=== PATIENT | female | born 1965 | race Caucasian/White ===

== ENCOUNTER 2020-07-21 10:53 | Outpatient (REF) | payer BC, SELFPAY ==
[2020-07-23 21:37] LABS: HPV mRNA E6/E7 Not Detected (Not Detected)
== END 2020-07-21 10:54 | disposition home or self-care (01) ==
LOC: HO.LAB 10:53
PROVIDERS: PCP Internal Medicine; Referring Provider Internal Medicine; Visit Provider Advanced Practice Midwife
DX: Z01.419 Encounter for gynecological examination (general) (routine) without abnormal findings (principal); N95.1 Menopausal and female climacteric states; Z79.899 Other long term (current) drug therapy
CPT/HCPCS: 87624; 87625; 88142

== ENCOUNTER 2020-08-04 14:09 | Outpatient (REF) | payer BC, SELFPAY ==
[2020-08-05 18:42] LABS: Follicle Stimulating Hormone 38.8 mIU/mL
== END 2020-08-04 14:10 | disposition home or self-care (01) ==
LOC: HO.LAB 14:09
PROVIDERS: PCP Internal Medicine; Visit Provider Advanced Practice Midwife
DX: R23.2 Flushing (principal)
CPT/HCPCS: 83001

== ENCOUNTER → 2020-08-08 09:48 | Outpatient (BNVA) | payer BC, SELFPAY | PROVIDERS: Visit Provider Advanced Practice Midwife | DX: Z76.89 Persons encountering health services in other specified circumstances (principal) ==

== ENCOUNTER 2020-08-13 08:00 | Outpatient (REF) | payer BC, SELFPAY ==
[2020-08-14 09:17] LABS: Follicle Stimulating Hormone 15.4 mIU/mL
== END 2020-08-13 08:01 | disposition home or self-care (01) ==
LOC: HO.LAB 08:00
PROVIDERS: PCP Internal Medicine; Visit Provider Advanced Practice Midwife
DX: R23.2 Flushing (principal)
CPT/HCPCS: 83001

== ENCOUNTER → 2020-08-15 10:04 | Outpatient (BNVA) | payer BC, SELFPAY | PROVIDERS: Visit Provider Advanced Practice Midwife | DX: Z76.89 Persons encountering health services in other specified circumstances (principal) ==

== ENCOUNTER 2020-09-16 07:10 | Outpatient (REF) | payer BC, SELFPAY ==
[2020-09-16 08:02] LABS: MANUAL DIFF FLAG NO
[2020-09-16 08:09] LABS: Basophils Percent Auto 0.7 % (0-2); Eosinophils Percent Auto 0.7 % (0-4); Hemoglobin 13.9 g/dl (12.0-16.0); Imm Gran Abs Auto 0.01 X10*3/uL (0.00-0.03); Imm Gran Pct Auto 0.2 % (0.0-0.4); Lymphocytes Absolute Auto 2.4 X10*3/uL (1.2-4.9); Lymphocytes Percent Auto 40.6 % (20-40); Mean Corpuscular HGB Conc 32.3 g/dl (31.0-35.0); Mean Corpuscular Hemoglobin 32.8 pg (27.0-33.0); Mean Corpuscular Volume 101.4 fL (80-98); Mean Platelet Volume 12.6 fL (9.4-12.3); Monocytes Absolute Auto 0.6 X10*3/uL (0.1-1.2); Monocytes Percent Auto 9.6 % (2-11); Neutrophils Absolute Auto 2.9 X10*3/uL (2.0-8.3); Neutrophils Percent Auto 48.2 % (45-73); Platelet Count 178 X10*3/uL (160-400); Red Blood Count 4.24 X10*6/uL (4.20-5.50); Red Cell Distribution Width 13.2 % (11.0-16.0); White Blood Count 5.9 X10*3/uL (4.8-10.8)
[2020-09-16 08:24] LABS: Valproate 64.2 mcg/mL (50.0-100.0)
[2020-09-16 08:27] LABS: Alanine Aminotransferase 18 U/L (0-31); Aspartate Amino Transferase 30 U/L (5-31)
== END 2020-09-16 07:11 | disposition home or self-care (01) ==
LOC: HO.LAB 07:10
PROVIDERS: PCP Internal Medicine; Visit Provider Psychiatry & Neurology Psychiatry
DX: F31.9 Bipolar disorder, unspecified (principal)
CPT/HCPCS: 36415; 80164; 84450; 84460; 85025

== ENCOUNTER 2020-09-25 11:42 | Outpatient (REF) | payer BC, SELFPAY ==
--- NOTE | 2020-09-25 11:45 | MM_ITS ---
EXAMINATION: MM SCREENING DIGITAL BREAST TOMOSYNTHESIS, BILATERAL CLINICAL INFORMATION: Screening. Asymptomatic. The lifetime risk of breast cancer based on the Tyrer-Cuzick Model is 8%. COMPARISON: Mammography: 04/25/2019, 03/08/2018, 01/31/2017 TECHNIQUE: Digital breast tomosynthesis is performed in both the craniocaudal and mediolateral oblique views along with computer-aided detection (CAD). Synthesized 2D images are generated from the tomosynthesis. FINDINGS: The breasts are heterogeneously dense, which may obscure small masses (ACR BI-RADS breast composition Category c). There are no significant masses, abnormal calcifications, or other abnormalities. Parenchymal pattern is similar to prior studies. The axilla and skin contours are unremarkable. MM/MM tomosynthesis screening BI IMPRESSION: No mammographic evidence of malignancy. ASSESSMENT: BI-RADS 1: Negative RECOMMENDATION: Routine annual mammography screening. This patient's information was entered into a reminder system with a target due date for their next mammogram.
== END 2020-09-25 11:43 | disposition home or self-care (01) ==
LOC: HO.MAMMO 11:42
PROVIDERS: PCP Internal Medicine; Visit Provider Internal Medicine
DX: Z12.31 Encounter for screening mammogram for malignant neoplasm of breast (principal)
CPT/HCPCS: 77063; 77067

== ENCOUNTER 2021-05-16 07:04 | Outpatient (REF) | payer BC, SELFPAY ==
[2021-05-16 07:48] LABS: MANUAL DIFF FLAG NO
[2021-05-16 08:02] LABS: Basophils Percent Auto 0.7 % (0-2); Eosinophils Absolute Auto 0.1 X10*3/uL (0.0-0.4); Hematocrit 41.2 % (37-47); Hemoglobin 13.7 g/dl (12.0-16.0); Imm Gran Abs Auto 0.01 X10*3/uL (0.00-0.03); Imm Gran Pct Auto 0.2 % (0.0-0.4); Lymphocytes Absolute Auto 2.6 X10*3/uL (1.2-4.9); Lymphocytes Percent Auto 42.2 % (20-40); Mean Corpuscular HGB Conc 33.3 g/dl (31.0-35.0); Mean Corpuscular Hemoglobin 32.9 pg (27.0-33.0); Mean Platelet Volume 12.3 fL (9.4-12.3); Monocytes Absolute Auto 0.6 X10*3/uL (0.1-1.2); Monocytes Percent Auto 9.4 % (2-11); Neutrophils Absolute Auto 2.8 X10*3/uL (2.0-8.3); Neutrophils Percent Auto 46.5 % (45-73); Platelet Count 175 X10*3/uL (160-400); Red Blood Count 4.16 X10*6/uL (4.20-5.50); Red Cell Distribution Width 13.4 % (11.0-16.0); White Blood Count 6.1 X10*3/uL (4.8-10.8)
[2021-05-16 08:14] LABS: Alanine Aminotransferase 20 U/L (0-31); Alkaline Phosphatase 38 U/L (39-117); Anion Gap 11 (12-20); Aspartate Amino Transferase 26 U/L (5-31); Bilirubin Total 0.7 mg/dL (0.0-1.0); Blood Urea Nitrogen 13 mg/dL (9-16); Calcium 9.4 mg/dL (8.4-10.2); Carbon Dioxide 27 mmol/L (22-29); Chloride 104 mmol/L (96-108); Cholesterol 150 mg/dL; Estimated Glomerular Filt Rate > 60; Glucose Fasting 88 mg/dL (60-99); HDL Cholesterol 62 mg/dL; LDL Cholesterol Calculated 81 mg/dl; Potassium 4.6 mmol/L (3.3-5.1); Sodium 137 mmol/L (135-145); Total Protein 7.2 g/dL (6.5-8.0); Triglycerides 36 mg/dL
[2021-05-16 08:32] LABS: Thyroid Stimulating Hormone 1.26 uIU/mL (0.32-4.0)
[2021-05-18 04:35] LABS: HBS Num1 18.65 mIU/mL (0-7.99); ~Hepatitis B Surface Antibody REACTIVE (Nonreactive)
[2021-05-18 17:17] LABS: Rubella IgG Antibody 6.67 Index
== END 2021-05-16 07:05 | disposition home or self-care (01) ==
LOC: HO.LAB 07:04
PROVIDERS: PCP Internal Medicine; Visit Provider Internal Medicine
DX: Z00.00 Encounter for general adult medical examination without abnormal findings (principal); E03.9 Hypothyroidism, unspecified; E11.9 Type 2 diabetes mellitus without complications
CPT/HCPCS: 36415; 80053; 80061; 84443; 85025; 86706; 86735; 86762; 86765

== ENCOUNTER → 2021-07-27 10:53 | Outpatient (BNVA) | payer BC, SELFPAY | PROVIDERS: Visit Provider Advanced Practice Midwife ==

== ENCOUNTER 2021-08-28 07:10 | Outpatient (REF) | payer BC, SELFPAY ==
[2021-08-29 05:06] LABS: Follicle Stimulating Hormone 3.2 mIU/mL
== END 2021-08-28 07:11 | disposition home or self-care (01) ==
LOC: HO.LAB 07:10
PROVIDERS: PCP Internal Medicine; Visit Provider Advanced Practice Midwife
DX: R23.2 Flushing (principal)
CPT/HCPCS: 36415; 83001

== ENCOUNTER → 2021-09-03 10:59 | Outpatient (BNVA) | payer BC, SELFPAY | PROVIDERS: PCP Internal Medicine; Visit Provider Advanced Practice Midwife ==

== ENCOUNTER 2021-10-22 16:01 | Outpatient (REF) | payer BC, SELFPAY ==
--- NOTE | ~2021-10-22 | MM_ITS ---
EXAMINATION: MM SCREENING DIGITAL BREAST TOMOSYNTHESIS, BILATERAL CLINICAL INFORMATION: Screening. Asymptomatic. The lifetime risk of breast cancer based on the Tyrer-Cuzick Model is 8%. COMPARISON: Mammography: 09/25/2020, 04/25/2019, 03/08/2018 TECHNIQUE: Digital breast tomosynthesis is performed in both the craniocaudal and mediolateral oblique views along with computer-aided detection (CAD). Synthesized 2D images are generated from the tomosynthesis. FINDINGS: The breasts are heterogeneously dense, which may obscure small masses (ACR BI-RADS breast composition Category c). There are no significant masses, abnormal calcifications, or other abnormalities. No significant changes. MM/MM tomosynthesis screening BI IMPRESSION: No mammographic evidence of malignancy. ASSESSMENT: BI-RADS 1: Negative RECOMMENDATION: Routine annual mammography screening. This patient's information was entered into a reminder system with a target due date for their next mammogram.
== END 2021-10-22 16:02 | disposition home or self-care (01) ==
LOC: HO.MAMMO 16:01
PROVIDERS: PCP Internal Medicine; Visit Provider Internal Medicine
DX: Z12.31 Encounter for screening mammogram for malignant neoplasm of breast (principal)
CPT/HCPCS: 77063; 77067

== ENCOUNTER 2022-05-15 07:02 | Outpatient (REF) | payer BC, SELFPAY ==
[2022-05-15 07:37] LABS: MANUAL DIFF FLAG NO
[2022-05-15 07:50] LABS: Basophils Absolute Auto 0.1 X10*3/uL (0.0-0.2); Basophils Percent Auto 1.1 % (0-2); Eosinophils Absolute Auto 0.2 X10*3/uL (0.0-0.4); Eosinophils Percent Auto 3.8 % (0-4); Hematocrit 40.6 % (37.0-47.0); Imm Gran Abs Auto 0.02 X10*3/uL (0.00-0.03); Imm Gran Pct Auto 0.3 % (0.0-0.4); Lymphocytes Absolute Auto 2.8 X10*3/uL (1.2-4.9); Lymphocytes Percent Auto 43.8 % (20-40); Mean Corpuscular HGB Conc 34.5 g/dl (31.0-35.0); Mean Corpuscular Volume 98.5 fL (80.0-98.0); Mean Platelet Volume 11.7 fL (9.4-12.3); Monocytes Absolute Auto 0.6 X10*3/uL (0.1-1.2); Monocytes Percent Auto 8.7 % (2-11); Neutrophils Absolute Auto 2.7 x10*3/uL (2.0-8.3); Neutrophils Percent Auto 42.3 % (45-73); Platelet Count 185 X10*3/uL (160-400); Red Blood Count 4.12 X10*6/uL (4.20-5.50); Red Cell Distribution Width 13.2 % (11.0-16.0); White Blood Count 6.3 X10*3/uL (4.8-10.8)
[2022-05-15 08:15] LABS: Alanine Aminotransferase 18 U/L (0-31); Alkaline Phosphatase 36 U/L (39-117); Anion Gap 13 (12-20); Aspartate Amino Transferase 26 U/L (5-31); Bilirubin Total 0.4 mg/dL (0.0-1.0); Blood Urea Nitrogen 20 mg/dL (9-16); Carbon Dioxide 28 mmol/L (22-29); Chloride 104 mmol/L (96-108); Cholesterol 154 mg/dL; Estimated Glomerular Filt Rate > 60; Glucose Fasting 89 mg/dL (60-99); HDL Cholesterol 52 mg/dL; LDL Cholesterol Calculated 88 mg/dl; Potassium 4.6 mmol/L (3.3-5.1); Sodium 140 mmol/L (135-145); Total Protein 7.2 g/dL (6.5-8.0); Triglycerides 70 mg/dL
[2022-05-15 08:35] LABS: Thyroid Stimulating Hormone 1.57 uIU/mL (0.32-4.0)
== END 2022-05-15 07:03 | disposition home or self-care (01) ==
LOC: HO.LAB 07:02
PROVIDERS: PCP Internal Medicine; Visit Provider Internal Medicine
DX: Z13.0 Encounter for screening for diseases of the blood and blood-forming organs and certain disorders involving the immune mechanism (principal); I10 Essential (primary) hypertension; E03.9 Hypothyroidism, unspecified; E78.5 Hyperlipidemia, unspecified
CPT/HCPCS: 36415; 80053; 80061; 84443; 85025

== ENCOUNTER 2022-10-26 09:00 | Outpatient (REF) | payer BC, SELFPAY ==
--- NOTE | ~2022-10-26 | MM_ITS ---
EXAMINATION: MM SCREENING DIGITAL BREAST TOMOSYNTHESIS, BILATERAL CLINICAL INFORMATION: Screening. Asymptomatic. The lifetime risk of breast cancer based on the Tyrer-Cuzick Model is 7.9%. COMPARISON: Mammography: October 22, 2021 and studies dating back to January 09, 2016 TECHNIQUE: Digital breast tomosynthesis is performed in both the craniocaudal and mediolateral oblique views along with computer-aided detection (CAD). Synthesized 2D images are generated from the tomosynthesis. FINDINGS: The breasts are extremely dense, which lowers the sensitivity of mammography (ACR BI-RADS breast composition Category d). There are no significant masses, abnormal calcifications, or other abnormalities. MM/MM tomosynthesis screening BI IMPRESSION: No significant changes from prior exam. ASSESSMENT: BI-RADS 1: Negative RECOMMENDATION: Routine annual mammography screening. This patient's information was entered into a reminder system with a target due date for their next mammogram.
== END 2022-10-26 09:01 | disposition home or self-care (01) ==
LOC: HO.MAMMO 09:00
PROVIDERS: PCP Internal Medicine; Visit Provider Internal Medicine
DX: Z12.31 Encounter for screening mammogram for malignant neoplasm of breast (principal)
CPT/HCPCS: 77063; 77067

== ENCOUNTER 2022-12-24 11:06 | Outpatient (REF) | payer BC, SELFPAY ==
[2022-12-26 06:08] LABS: Follicle Stimulating Hormone 24.3 mIU/mL
== END 2022-12-24 11:07 | disposition home or self-care (01) ==
LOC: HO.LAB 11:06
PROVIDERS: PCP Internal Medicine; Visit Provider Advanced Practice Midwife
DX: N95.1 Menopausal and female climacteric states (principal); R23.2 Flushing
CPT/HCPCS: 36415; 83001

== ENCOUNTER 2023-05-03 09:47 | Outpatient (AMB) | payer BC, SELFPAY ==
--- OUTSIDE RECORDS SUMMARY | 2023-05-03 09:49 | XMS_ITS | Patient Health Record ---
Author Name Unknown [facility] Address [address] [place] [address] Care Team Providers Care Knuckle Bender Name Role Phone Ramu Wesley MD Primary Care Provider Unavaila Almas Milligan Unavailable [phone] ALLERGIES No Known Allergies REASON FOR REFERRAL No Information MEDICATIONS Medication SIG (Take, Route, Frequency, Duration) Notes Start Date End Date Status Calcium Active Divalproex Sodium 750 1 tablet Orally Once a day Active Folic Acid Active Fiber Adult Gummies Active Multi-Vitamin Active Prempro Not-Taking Incassia 0.35 MG 1 tablet Orally Once a day for 28 day(s) Active Iron Active IMMUNIZATIONS Vaccine Route Administration Date Status Comme nts COVID-19 Pfizer BioNTech Vaccine Unknown 11/22/2020 Administered 1st 10/22/2020 SOCIAL HISTORY Tobacco Use: Social History Observation Description Date Details (start date - stop date) Former Smoker NA - NA Sex Assigned At : Social History Observation Description Sex Assigned At Unknown Tobacco Use/Smoking Question Answer Notes Are you a: former smoker Additional Findings: Tobacco Non-User Current no n-smoker Alcohol Screen Question Answer Notes Did you have a drink contain ing alcohol in the past year? Yes How often did you have a dri nk containing alcohol in the past year? 2 to 3 times a week (3 points) Points 3 Interpretation Positive Tobacco use other than smoking: Question Answer Notes Are you an other tobacco user? No PROBLEMS Problem Type ICD Code Onset Dates Problem Status W/U Status Risk SNOMED Code Notes Problem Ganglion of foot, left (M67.472) Active confirmed [id number] PLAN OF TREATMENT Pending Test Test Name Order Date - Ganglion Cyst Injection/Aspiratio n 06/13/2015- Ganglion Cyst Injection/Aspiratio n 06/26/2021- Ganglion Cyst Injection/Aspiratio n 04/26/2016 Insurance Providers Payer Name Payer Address Payer Phone Subscriber Number Group Number Insured Name Patient Relationship to Insured Coverage Start Date Coverage End Date [facility] [address] [place] [address] [phone] [id number] Janie Hoty Self - patient is the insured MEDICAL (GENERAL) HISTORY Medical History History ICD Code Psychiatric disorder - Bipolor COVID-19 Surgical History Surgery Date(Month/Year) Exc Gang Cyst Left Foot 07/16/2015
--- NOTE | 2023-05-03 09:54 | A.OFFVIS_ITS ---
Intake Vital Signs 05/03/23 09:55 Height 4 ft 11 in Weight 96 lb BMI 19.4 BP 112/66 Intake Visit Reasons: ebony eval Intake Note: The patient agreed to use of a medical technologist clinical during this encounter. Scribed for JOYCE Moran by Helen Bull, medical technologist clinical, on 05/03/2023 at 10:15 am EST. Allergies No Known Allergies Allergy (Verified 05/03/23 09:54) Is last menstrual period known: Yes Last menstrual period: 05/02/23 HPI HPI Comments History of Present Illness Details She is here with complaints of bilateral breast pain, bloating x 1- 2wks, and started bleeding this week which resolved these symptoms. She states via portal: In January I had a 4 day cycle with spotting for a few hours a few weeks later. ? I think it?s menopause but I?m hoping there is something to help me. She stopped Leslie in August. Reports VB in September 13 x2 days, October 26 x4 days, January 06 x4 days and spotting yesterday with light to medium flow. 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 Sexual orientation: Straight/Heterosexual Gender identity: Female Cognitive needs: No Hearing needs: No Vision needs: No Female Reproductive History Menstrual Age of Menarche: 15 Date of last menstrual period: 05/02/23 Total pregnancies: 0 Date of last pap smear: 07/21/20 (neg pap and hpv) Physical Exam Vital Signs: Last Vital Signs BP 112/66 05/03/23 09:55 BMI result Body Mass Index 19.4 Results Reviewed Results Reviewed: Laboratory Tests 12/24/22 11:23 FSH 24.3 Assessment & Plan Assessment & Plan (1) PMB (postmenopausal bleeding): Code(s): N95.0 - Postmenopausal bleeding (2) PMB (postmenopausal bleeding): Code(s): N95.0 - Postmenopausal bleeding Plan: Discussed: Work up including labs, pelvic US and EMB. The EMB purpose was explained to rule out atypia, hyperplasia and uterine cancer. Reviewed procedure and instructed to take ibuprofen with food 1 hour prior to procedure. Go to ER with any prolonged or heavy bleeding. All of her questions and concerns were addressed to the best of my ability and shared decision making: for EMBx. She is agreeable to plan of care. (3) Breast pain: Code(s): N64.4 - Mastodynia (4) Bloated abdomen: Code(s): R14.0 - Abdominal distension (gaseous) Orders: Orders US pelvic and transvaginal Today N95.0 - Postmenopausal bleeding, R14.0 - Abdominal distension (gaseous) Follicle Stimulating Hormone Today N95.0 - Postmenopausal bleeding, N95.1 - Menopausal and female climacteric states Coding Level of Care Code Est Pt Level 3 (17555) Diagnoses PMB (postmenopausal bleeding) N95.0 Breast pain N64.4 Bloated abdomen R14.0
[2023-05-03 09:55] VITALS: BP 112/66; BMI 19.4
== END 2023-05-03 10:38 | disposition home or self-care (01) ==
LOC: HO.HWS 09:47
PROVIDERS: PCP Internal Medicine; Visit Provider Advanced Practice Midwife
DX: N95.0 Postmenopausal bleeding (principal); N64.4 Mastodynia; R14.0 Abdominal distension (gaseous)
CPT/HCPCS: 99213

== ENCOUNTER → 2023-05-03 09:47 | Outpatient (BNVA) | payer BC, SELFPAY | PROVIDERS: PCP Internal Medicine; Visit Provider Advanced Practice Midwife ==

== ENCOUNTER 2023-05-10 09:07 | Outpatient (AMB) | payer BC, SELFPAY ==
[2023-05-10 09:09] VITALS: BP 100/70; PULSE 67; O2SAT 100; BMI 18.8
--- NOTE | 2023-05-10 09:09 | A.OFFPC_ITS ---
Vital Signs 05/10/23 09:09 Height 4 ft 11 in Weight 93 lb 0.6 oz BMI 18.8 BP 100/70 Blood Pressure Location Lt brachial Position Sitting Pulse 67 Pulse Source Pulse Oximeter Temp Source Skin Pulse Oximetry (%) 100 Oxygen Delivery Method Room Air Intake Visit Reasons: Annual Exam Intake Note: Patient is here today for a physical. Lap Winding Machine Operator Required: No Accompanied by: Self / Same As Patient Allergies No Known Allergies Allergy (Verified 05/10/23 09:10) Medication List - Last Reconciled 05/10/23 by Ramu Wesley MD calcium carbonate (Calcium 500) 500 mg PO DAILY divalproex ER mg PO inulin (Children's Fiber Select Gummies) grams PO Tobacco use date assessed: 05/10/23 Dental Screening Dental Screen Date: 05/10/23 Did you have a dental visit in the last 12 months?: Yes Did you have a dental problem in the last 6 months where you did not have access to dental care?: No Was dental information given to patient?: Patient has dentist HPI Annual Exam HPI Details bipolar disorder and sees psych; doing well PFSH Medical History (Updated 05/03/23 @ 10:26 by Helen Bull) Bloated abdomen Breast pain Hot flashes Hx of anorexia nervosa Hx of bipolar disorder PMB (postmenopausal bleeding) Surgical History Hx of foot surgery Family History Mother Hypertension Social History Household Members: Significant Other Housing: House Alcohol intake: current Alcohol intake frequency: a few times a week Patient Tobacco Use Status: Never used Tobacco e-Cigarette/Vaping Use: Never Used Second Hand Smoke Exposure: No service: No Current occupational status: employed 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 1. Little interest or pleasure in doing things: not at all 2. Feeling down, depressed, or hopeless: not at all 3. Trouble falling or staying asleep, or sleeping too much: not at all 4. Feeling tired or having little energy: not at all 5. Poor appetite or overeating: not at all 6. Feeling bad about yourself - or that you are a failure or have let yourself or your family down: not at all 7. Trouble concentrating on things, such as reading the newspaper or watching television: not at all 8. Moving or speaking so slowly that other people could have noticed. Or the opposite - being so fidgety or restless that you have been moving around a lot more than usual: not at all 9. Thoughts that you would be better off or of hurting yourself in some way: not at all Total score: 0 Depression Screening Interpretation: Negative 65679 - PHQ-9 Billing: Yes Source: Developed by Drs. Elan Reaves, Roxi Nichols, Kenji Schwartz and colleagues, with an educational pita from [employer]. Thrive Questionnaire Date Thrive assessed: 05/10/23 I am a: Patient What is your living situation today?: I have a steady place to live Within the past 12 months, did the food you bought not last and you didn't have the money to get more?: Never true Within the past 12 months, did you worry whether your food would run out before you got money to buy more?: Never true AUDIT C Alcohol Use Questionnaire (AUDIT-C) 1. How often do you have a drink containing alcohol?: 2-3 times a week 2. How many drinks containing alcohol do you have on a typical day when you are drinking?: 1 or 2 3. How often do you have six or more drinks on one occasion?: Never Total Score: 3 Score Reviewed/Action Taken: Yes MALI-7 AMB Questionnaire MALI-7 Date MALI - 7 assessed: 05/10/23 Feeling nervous, anxious, or on edge: 0 = Not at all Not being able to stop or control worryin = Not at all Worrying too much about different things: 0 = Not at all Trouble relaxin = Not at all Being so restless that it is hard to sit still: 0 = Not at all Becoming easily annoyed or irritable: 0 = Not at all Feeling afraid as if something awful might happen: 0 = Not at all Total MALI-7 score (0-4 normal; 5-9 mild; 10-14 moderate; 15-21 severe): 0 Source: Developed by Drs. Elan Reaves, Roxi Nichols, Kenji Schwartz and colleagues, with an educational pita from [employer]. MALI-7 Assessment Billing MALI-7 Assessment Tool: MALI-7 Assessment 22371 Review of Systems Const Denies chills, Denies fatigue, Denies headache(s) and Denies weight loss Eyes Denies change in vision, Denies diplopia and Denies eye pain ENT Denies vertigo, Denies dizziness, Denies headache(s) and Denies nasal discharge Card Denies chest pain, Denies rapid heart rate and Denies dyspnea on exertion Resp Denies chest congestion, Denies cough, Denies pain with cough and Denies dyspnea on exertion GI Denies abdominal pain, Denies hematochezia and Denies change in bowel habits Musc Denies myalgias, Denies arthralgias and Denies joint swelling Skin/Breast Denies lesions and Denies unusual bruising Neuro Denies vertigo, Denies dizziness, Denies headache(s) and Denies focal weakness Endo Denies fatigue Physical exam (Primary Care) Vital Signs: Last Vital Signs Pulse 67 05/10/23 09:09 BP 100/70 05/10/23 09:09 Pulse Ox 100 05/10/23 09:09 Oxygen Delivery Method Room Air 05/10/23 09:09 BMI result Body Mass Index 18.8 Tobacco/Smoking Status: Tobacco use Status Tobacco use date assessed 05/10/23 05/10/23 09:14 Patient Tobacco Use Status Never used Tobacco 05/10/23 09:14 e-Cigarette/Vaping Use Never Used 05/10/23 09:14 PHQ-9: PHQ-9 Score PHQ-9: Total score 0 05/10/23 09:14 Depression Screening Interpretation: Negative Thrive Assessment: Date of Thrive Assessment Date Thrive assessed 05/10/23 05/10/23 09:14 Const General: cooperative, healthy appearing and no acute distress Orientation/consciousness: oriented to person, oriented to place and oriented to time HENMT Head: Yes normal to inspection, Yes normocephalic and Yes atraumatic Mouth: Normal oral and palatal mucosa present and tongue normal Throat: Yes posterior oropharynx normal and Yes uvula midline Eyes General: appearance normal, both eyes and all related structures Neck Neck: Yes normal visual inspection, Yes full ROM and Yes no lymphadenopathy Thyroid: Thyroid normal Carotids: normal carotid upstroke Chest Chest palpation & inspection: normal inspection of the chest Resp Effort & Inspection: normal respiratory effort and able to speak in complete sentences Auscultation: clear to auscultation bilaterally Cardio Jugular venous distension: no JVD Palpation: normal PMI Rate: regular rate Rhythm: regular rhythm Heart sounds: S1 normal heart sound present and S2 normal heart sound present GI Inspection: Yes normal to inspection Palpation (GI): Soft to palpation and No hepatosplenomegaly present Auscultation: normal bowel sounds General: Yes no CVA tenderness Back/Spine/Pelvis Back: no CVA tenderness Skin General skin exam: no rashes or lesions noted Neuro General: oriented to person, oriented to place and oriented to time Extrem General: Yes normal to inspection and Yes full ROM Assessment and Plan Assessment & Plan (1) Physical exam: Code(s): Z00.00 - Encounter for general adult medical examination without abnormal findings (2) Hx of bipolar disorder: Comment: stable; see psych still Code(s): Z86.59 - Personal history of other mental and behavioral disorders Orders: Orders Comprehensive Mckenna. Panel Fast Today N28.9 - Disorder of kidney and ureter, un specified Lipid Panel Today E78.5 - Hyperlipidemia, unspecified Thyroid Stimulating Hormone Today E03.9 - Hypothyroidism, unspecified Complete Blood Count Auto Diff Today D64.9 - Anemia, unspecified Coding Level of Care Code Est Pt Prev Care 40-64y(19615) Diagnoses Physical exam Z00.00 Hx of bipolar disorder Z86.59 Additional Codes MALI-7 Assessment Billing - MALI-7 Assessment Tool: MALI-7 Assessment [id number] ([id number])
== END 2023-05-10 09:28 | disposition home or self-care (01) ==
PROVIDERS: PCP Internal Medicine; Visit Provider Internal Medicine
DX: Z00.00 Encounter for general adult medical examination without abnormal findings (principal); Z86.59 Personal history of other mental and behavioral disorders
CPT/HCPCS: 99396

== ENCOUNTER 2023-05-16 14:39 | Outpatient (REF) | payer BC, SELFPAY ==
--- NOTE | ~2023-05-16 | US_ITS ---
EXAMINATION: US PELVIS CLINICAL INFORMATION: Gaseous abdominal distention. COMPARISON: Pelvic ultrasound dated 09/02/2016. TECHNIQUE: Ultrasound of the pelvis is performed using both transabdominal and transvaginal transducers along with Doppler. Transvaginal imaging is performed due to inadequate visualization transabdominally. FINDINGS: Uterus: The uterus is anteverted and measures 6.4 x 3.1 x 3.4 cm. The double wall endometrial thickness is 3 mm. The uterus is smooth in contour and has normal myometrial echogenicity. No visible fibroid. Adnexa: Both ovaries are visualized. There is normal color flow to the adnexa. There is no ovarian torsion. There is a small amount nonspecific free fluid in the cul-de-sac. The right ovary measures 4.1 x 1.7 x 2.5 cm, volume 9.1 mL. The left ovary is not visualized. US/US pelvic and transvaginal IMPRESSION: 1. A small amount of nonspecific free fluid is seen within the cul-de-sac. 2. The left ovary is not visualized.
== END 2023-05-16 14:40 | disposition home or self-care (01) ==
LOC: HO.US 14:39
PROVIDERS: Visit Provider Advanced Practice Midwife
DX: N95.0 Postmenopausal bleeding (principal); R14.0 Abdominal distension (gaseous)
CPT/HCPCS: 76830; 76856

== ENCOUNTER 2023-05-21 07:10 | Outpatient (REF) | payer BC, SELFPAY ==
[2023-05-21 07:23] LABS: MANUAL DIFF FLAG NO
[2023-05-21 07:50] LABS: Basophils Absolute Auto 0.1 X10*3/uL (0.0-0.2); Basophils Percent Auto 0.9 % (0-2); Eosinophils Absolute Auto 0.1 X10*3/uL (0.0-0.4); Hematocrit 38.2 % (37.0-47.0); Imm Gran Abs Auto 0.02 X10*3/uL (0.00-0.03); Imm Gran Pct Auto 0.4 % (0.0-0.4); Lymphocytes Absolute Auto 2.9 X10*3/uL (1.2-4.9); Lymphocytes Percent Auto 51.8 % (20-40); Mean Corpuscular Hemoglobin 32.9 pg (27.0-33.0); Mean Corpuscular Volume 96.7 fL (80.0-98.0); Mean Platelet Volume 11.6 fL (9.4-12.3); Monocytes Absolute Auto 0.4 X10*3/uL (0.1-1.2); Monocytes Percent Auto 7.7 % (2-11); Neutrophils Absolute Auto 2.1 x10*3/uL (2.0-8.3); Neutrophils Percent Auto 37.2 % (45-73); Platelet Count 189 X10*3/uL (160-400); Red Blood Count 3.95 X10*6/uL (4.20-5.50); Red Cell Distribution Width 13.4 % (11.0-16.0); White Blood Count 5.6 X10*3/uL (4.8-10.8)
[2023-05-21 08:23] LABS: Alanine Aminotransferase 22 U/L (0-31); Albumin Level 3.9 g/dL (3.5-5.0); Alkaline Phosphatase 54 U/L (39-117); Anion Gap 10 (12-20); Aspartate Amino Transferase 32 U/L (5-31); Bilirubin Total 0.2 mg/dL (0.0-1.0); Blood Urea Nitrogen 10 mg/dL (9-16); Calcium 9.5 mg/dL (8.4-10.2); Carbon Dioxide 28 mmol/L (22-29); Chloride 106 mmol/L (96-108); Cholesterol 168 mg/dL; Estimated Glomerular Filt Rate > 60; Glucose Fasting 87 mg/dL (60-99); HDL Cholesterol 63 mg/dL; LDL Cholesterol Calculated 96 mg/dl; Potassium 4.1 mmol/L (3.3-5.1); Sodium 140 mmol/L (135-145); Total Protein 7.2 g/dL (6.5-8.0); Triglycerides 48 mg/dL
[2023-05-21 08:39] LABS: Thyroid Stimulating Hormone 1.79 uIU/mL (0.32-4.0)
[2023-05-22 16:44] LABS: Follicle Stimulating Hormone 44.4 mIU/mL
== END 2023-05-21 07:11 | disposition home or self-care (01) ==
LOC: HO.LAB 07:10
PROVIDERS: Absent Provider Advanced Practice Midwife; PCP Internal Medicine; Visit Provider Internal Medicine
DX: E03.9 Hypothyroidism, unspecified (principal); E78.5 Hyperlipidemia, unspecified; N28.9 Disorder of kidney and ureter, unspecified; D64.9 Anemia, unspecified; N95.0 Postmenopausal bleeding; N95.1 Menopausal and female climacteric states
CPT/HCPCS: 36415; 80053; 80061; 83001; 84443; 85025

== ENCOUNTER 2023-05-27 11:15 | Outpatient (AMB) | payer BC, SELFPAY ==
--- OUTSIDE RECORDS SUMMARY | 2023-05-27 11:17 | XMS_ITS | Patient Health Record ---
Author Name Unknown [facility] Address [address] [place] [address] Care Team Providers Care B Operator Name Role Phone Ramu Wesley MD Primary Care Provider Unavaila Almas Milligan Unavailable [phone] ALLERGIES No Known Allergies REASON FOR REFERRAL [...] Ganglion of foot, left (M67.472) Active confirmed [id number] PLAN OF TREATMENT Pending Test Test Name Order Date - Ganglion Cyst Injection/Aspiratio n 06/13/2015- Ganglion Cyst Injection/Aspiratio n 04/26/2016- Ganglion Cyst Injection/Aspiratio n 06/26/2021 Insurance Providers Payer Name Payer Address Payer Phone Subscriber Number Group Number Insured Name Patient Relationship to Insured Coverage Start Date Coverage End Date [facility] [address] [place] [address] [phone] [id number] Janie Hoyt Self - patient is the insured MEDICAL (GENERAL) HISTORY Medical History History ICD Code Psychiatric disorder - Bipolor COVID-19 Surgical History Surgery Date(Month/Year) Exc Gang Cyst Left Foot 07/16/2015
--- NOTE | 2023-05-27 11:18 | A.OFFVIS_ITS ---
Intake Vital Signs 05/27/23 11:26 Height 4 ft 11 in Weight 92 lb 9.506 oz BMI 18.7 BP 96/60 Intake Visit Reasons: EMB/ Ultra sound follow up Intake Note: The patient agreed to use of a medical attendant during this encounter. Scribed for JOYCE Moran by María Lopez medical attendant, on 05/27/2023 at 11:30 am EST Spinning Lathe Operator Automatic Required: No Information Interpreted: non-clinical & clinical Contract Graphic Designer: Contract Graphic Designer Present (Misty Tom FOLEY) Accompanied by: Self / Same As Patient Allergies No Known Allergies Allergy (Verified 05/27/23 11:27) Post menopausal: Yes HPI HPI Comments History of Present Illness Details She presents for EMB and test results secondary to PMB to rule out any pathology including atypical, hyperplasia or cancer cells of the uterus. She was consented for the procedure, and the consent forms were signed. She is agreeable to have the procedure today. All questions were answered. 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 Sexual orientation: Straight/Heterosexual Gender identity: Female Cognitive needs: No Hearing needs: No Vision needs: No Female Reproductive History Menstrual Age of Menarche: 15 Review of Systems Const All systems reviewed & are unremarkable except as noted in HPI and below Physical Exam Vital Signs: Last Vital Signs BP 96/60 05/27/23 11:26 BMI result Body Mass Index 18.7 Const General: cooperative, no acute distress, well developed and alert External Female Exam: normal external appearance Speculum Exam - Vagina: normal appearance of the vagina Speculum Exam - Cervix: normal appearance of the cervix Bimanual exam- vagina & uterus: normal bimanual exam, uterine size normal, uterine shape normal and non-tender Bimanual Exam- Adnexa, other: normal adnexae and no masses Office Procedures Endometrial Biopsy Details: She was counseled regarding anticipatory guidance for the procedure including the risks for pain, infection, bleeding, perforation, potential injury to the tissues may include the cervix, uterus, tubes, bladder and bowels. These injuries may include further treatment and evaluation including surgery, blood transfusions, antibiotics, hospitalizations and anesthesia. Permanent injury and scarring can occur. The patient was placed in the dorsal lithotomy position and a sterile speculum inserted. Using aseptic technique for the procedure. The cervix was cleansed with Betadine x 3 swabs. A single toothed tenaculum was placed on the cervix for stabilization and the uterus was sounded to 8 cm with a 4mm pipelle for 3 passes. Minimal bleeding was observed. The patient tolerated the procedure well and was in good condition when leaving the department. The tissue sample was placed in formalin in a patient labeled container by staff assisting and sent to the pathology department for processing and interpretation. The patient tolerated the procedure well. Warnings reviewed with patient. Instructions given to call if temp >100.4, flu like sx, SOB, fatigue, lightheadedness/dizziness, abd pain (worse than cramping), bloating or abd distention, foul odor or abnormal discharge or heavy vaginal bleeding. [id number] Biopsy Results Reviewed Results Reviewed: Laboratory Tests 05/21/23 05/21/23 07:21 07:21 TSH 1.79 FSH 44.4 05/16/23 US FINDINGS: Uterus: The uterus is anteverted and measures 6.4 x 3.1 x 3.4 cm. The double wall endometrial thickness is 3 mm.? The uterus is smooth in contour and has normal myometrial echogenicity. ? No visible fibroid. Adnexa: Both ovaries are visualized. There is normal color flow to the adnexa. There is no ovarian torsion. There is a small amount nonspecific free fluid in the cul-de-sac. The right ovary measures 4.1 x 1.7 x 2.5 cm, volume 9.1 mL. The left ovary is not visualized. IMPRESSION: ? 1. A small amount of nonspecific free fluid is seen within the cul-de-sac. ? 2. The left ovary is not visualized. Assessment & Plan Assessment & Plan (1) PMB (postmenopausal bleeding): Code(s): N95.0 - Postmenopausal bleeding Plan: EMBx done today, see procedure note. Instructed patient nothing in the vagina including: tampons, douching or sex for 3 days. She may take an over the counter mild analgesic such as Tylenol or Advil (if no allergies) per the user acceptance tester?s recommendation on dosing, frequency, and follow the directions completely. RTO for test results. Orders: Orders Surgical Today N95.0 - Postmenopausal bleeding Coding Level of Care Code Procedure Only Diagnoses PMB (postmenopausal bleeding) N95.0 CPT Codes Endometrial Biopsy - CPT: 02463-[id number] Biopsy ([id number])
[2023-05-27 11:26] VITALS: BP 96/60; BMI 18.7
== END 2023-05-27 11:54 | disposition home or self-care (01) ==
LOC: HO.HWS 11:15
PROVIDERS: PCP Internal Medicine; Visit Provider Advanced Practice Midwife
DX: N95.0 Postmenopausal bleeding (principal)
CPT/HCPCS: 58100

== ENCOUNTER 2023-05-27 11:15 | Outpatient (REF) | payer BC, SELFPAY | END 2023-05-27 11:16 | disposition home or self-care (01) | LOC: HO.LNP 11:15 | PROVIDERS: PCP Internal Medicine; Visit Provider Advanced Practice Midwife | DX: N95.0 Postmenopausal bleeding (principal) | CPT/HCPCS: 58100; 88305 ==

== ENCOUNTER 2023-06-15 12:45 | Outpatient (AMB) | payer BC, SELFPAY ==
--- NOTE | 2023-06-15 12:46 | A.OFFVIS_ITS ---
Intake Intake Visit Reasons: EMB results/30 mins ok per Linda Intake Note: cell # [phone] patient started bleeding again on 06/11/23 The patient agreed to use of a medical receptionist assistant during this encounter. Scribed for JOYCE Moran by Helen Bull medical receptionist assistant, on 06/15/2023 at 1:14 pm EST. Allergies No Known Allergies Allergy (Verified 06/15/23 12:46) Is last menstrual period known: Yes Last menstrual period: 06/11/23 HPI HPI Comments History of Present Illness Details Doximity live video 1:13 pm - 1:14. Phone Call due to Covid-19 Pandemic. Video was utilized but ended due to poor audio. Telehealth visit 1:16 pm-1:28 pm. Phone Call due to Covid-19 Pandemic. She presents via phone to discuss EMBx results regarding PMB. Reports vaginal bleeding 06/11/23 with light to medium flow. 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 Clinical History Pre-Op Dx: PMB Post-Op Dx: Pending Microscopic Description Microscopic sections reviewed. Material Received EMB Gross Description Received in formalin labeled EMB is a 2.0 x 1.8 cm aggregate of red-brown soft tissue fragments, which are filtered and entirely submitted in cassette labeled A. Assessment & Plan Assessment & Plan (1) Encounter to discuss test results: Code(s): Z71.2 - Person consulting for explanation of examination or test findings Plan: Discussed: EMB results: Proliferative endometrium with stromal breakdown; negative for atypia or malignancy. Discussed treatment for proliferative endometrium, option: LNG- IUD, to protect the endometrium from hyperplasia development and progression towards uterine cancer. If persistent bleeding episodes, will need further evaluation and follow up. She opts for Mirena IUD, and EMB every 3-6 months for 1 year. Offer MD services for care, she prefers to remain under my care. The EMB purpose was explained to rule out atypia, hyperplasia and uterine cancer. Reviewed procedure and instructed to take ibuprofen with food 1 hour prior to procedure. All of her questions and concerns were addressed to the best of my ability and shared decision making. She is agreeable to plan of care. Schedule Mirena ID insertion. (2) PMB (postmenopausal bleeding): Code(s): N95.0 - Postmenopausal bleeding Plan Telehealth Telehealth Location of provider rendering services: practice address Location of patient: other Patient Identification confirmed using: Name, : Yes Telehealth method: video Patient verbally consented to treatment: Yes Patient verbally consented to billing insurance company: Yes Patient informed of any privacy concerns related to visit: Yes Coding Level of Care Code Tele Est Pt Level 3 (77164) Diagnoses Encounter to discuss test results Z71.2 PMB (postmenopausal bleeding) N95.0
--- OUTSIDE RECORDS SUMMARY | 2023-06-15 12:46 | XMS_ITS | Patient Health Record ---
Author Name Unknown [facility] Address [address] [place] [address] Care Team Providers Care Loading Supervisor Name Role Phone Ramu Wesley MD Primary Care Provider Unavaila Almas Milligan Unavailable [phone] ALLERGIES No Known Allergies REASON FOR REFERRAL [...] Ganglion of foot, left (M67.472) Active confirmed [id number] PLAN OF TREATMENT Pending Test Test Name Order Date - Ganglion Cyst Injection/Aspiratio n 06/13/2015- Ganglion Cyst Injection/Aspiratio n 04/26/2016- Ganglion Cyst Injection/Aspiratio n 06/26/2021 Insurance Providers Payer Name Payer Address Payer Phone Subscriber Number Group Number Insured Name Patient Relationship to Insured Coverage Start Date Coverage End Date [facility] [address] [place] [address] [phone] [id number] Janie Hoyt Self - patient is the insured MEDICAL (GENERAL) HISTORY Medical History History ICD Code Psychiatric disorder - Bipolor COVID-19 Surgical History Surgery Date(Month/Year) Exc Gang Cyst Left Foot 07/16/2015
== END 2023-06-15 13:40 | disposition home or self-care (01) ==
LOC: HO.HWS 12:45
PROVIDERS: PCP Internal Medicine; Visit Provider Advanced Practice Midwife
DX: N95.0 Postmenopausal bleeding (principal); Z71.2 Person consulting for explanation of examination or test findings
CPT/HCPCS: 99213

== ENCOUNTER → 2023-06-15 12:45 | Outpatient (BNVA) | payer BC, SELFPAY | PROVIDERS: PCP Internal Medicine; Visit Provider Advanced Practice Midwife ==

== ENCOUNTER 2023-06-17 07:32 | Outpatient (AMB) | payer BC, SELFPAY ==
[2023-06-17 07:36] VITALS: BP 102/60; BMI 21.4
--- NOTE | 2023-06-17 07:36 | A.OFFVIS_ITS ---
Intake Vital Signs 06/17/23 07:36 Height 4 ft 11 in Weight 105 lb 13.15 oz BMI 21.4 BP 102/60 Intake Visit Reasons: Mirena insert Intake Note: The patient agreed to use of a medical administrative specialist during this encounter. Scribed for JOYCE Moran by María Lopez medical administrative specialist, on 06/17/2023 at 8:00 am EST Manager Imaging Required: No Information Interpreted: non-clinical & clinical Garment Manufacturer: Garment Manufacturer Present (Misty FOLEY) Accompanied by: Self / Same As Patient Allergies No Known Allergies Allergy (Verified 06/17/23 07:41) Post menopausal: Yes HPI HPI Comments History of Present Illness Details The patient is here today for a Mirena IUD insertion for proliferative cells on EMB, hx of PMB. She denies any contraindication to the device including: or suspected , unexplained uterine bleeding, known or suspected uterine or cervical cancer, breast cancer now and in the past, history of VTE, PID, recent pelvic infections in the last 3 months, liver disease, allergies to the product, multiple sex partners or partners with multiple partners. 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 Sexual orientation: Straight/Heterosexual Gender identity: Female Cognitive needs: No Hearing needs: No Vision needs: No Female Reproductive History Menstrual Age of Menarche: 15 control method: progestin IUCD (Mirena for PMB/proliferative cells (x5yrs.)) Physical Exam Vital Signs: Last Vital Signs BP 102/60 09/15/23 07:36 BMI result Body Mass Index 21.4 Const General: cooperative, no acute distress, well developed and alert External Female Exam: normal external appearance Speculum Exam - Vagina: normal appearance of the vagina and vaginal bleeding (small amount of dark red blood) Speculum Exam - Cervix: normal appearance of the cervix Bimanual exam- vagina & uterus: normal bimanual exam, uterine size normal, uterine shape normal and non-tender Bimanual Exam- Adnexa, other: normal adnexae and no masses OB/external & speculum: vaginal bleeding (small amount of dark red blood) Office Procedures IUD Insert/Removal Details Details: The patient was counseled on the side effects including: menstrual cycle changes, pain, infection, bleeding, or expulsion. Complications of the device can include: , perforation, injury to tissue including uterus, tubes, ovaries, bowel and bladder, migration of the device requiring: Xray, MRI or CT scan and surgical removal, pain, scarring. infection, PID, and excessive bleeding. (Use of a hormonal IUD may include risks for: headaches, skin and hair changes, missed or light menses, breast tenderness, headaches, increase of ovarian cysts, mood changes, vaginal discharge or irritation.) The patient was consented for the IUD insertion and has signed the consent form. All questions were answered. The patient was placed in the dorsal lithotomy position and a sterile speculum was inserted. The procedure was completed under aseptic technique. The cervix was cleansed with a Betadine solution x 3 swabs. A single toothed tenaculum was applied to the cervix for stabilization, and the uterus was sounded to 7cm. The device was inserted and released with a gentle motion. Bleeding from the tenaculum sites and the procedure were minimal. The strings were trimmed to 3cm. All of the equipment was removed and the bimanual was normal, no tip or strings were palpable at the cervical os. The patient tolerated the procedure well and left the office in good condition. Warnings reviewed with patient. Instructions given to call if temp >100.4, flu like sx, SOB, fatigue, lightheadedness/dizziness, abd pain, bloating or abd distention, bowel changes including rectal bleeding, bladder changes, foul odor or heavy vaginal bleeding. The patient will call office with any questions or concerns. [id number] Insertion Procedure code (CPT) selection complete Assessment & Plan Assessment & Plan (1) PMB (postmenopausal bleeding): Code(s): N95.0 - Postmenopausal bleeding Plan: Mirena IUD inserted today with no complications. See procedure note. The patient was advised to take Motrin 600mg QID with food prn for cramping. Bleeding will tend to taper down, some women do not bleed at all for months, some it is unscheduled and random Will return in 4-6 weeks for IUD check. Coding Level of Care Code Procedure Only Diagnoses PMB (postmenopausal bleeding) N95.0 CPT Codes Details - CPT: 25347-XOA Insertion ([id number])
== END 2023-06-17 08:12 | disposition home or self-care (01) ==
PROVIDERS: PCP Internal Medicine; Visit Provider Advanced Practice Midwife
DX: Z30.430 Encounter for insertion of intrauterine contraceptive device (principal)
CPT/HCPCS: 58300

== ENCOUNTER → 2023-06-17 07:32 | Outpatient (BNVA) | payer BC, SELFPAY | PROVIDERS: PCP Internal Medicine; Visit Provider Advanced Practice Midwife | DX: Z30.430 Encounter for insertion of intrauterine contraceptive device (principal) | CPT/HCPCS: 58300; J7298 ==

== ENCOUNTER 2023-07-20 08:12 | Outpatient (AMB) | payer BC, SELFPAY ==
[2023-07-20 08:27] VITALS: BP 106/64; BMI 19.0
--- NOTE | 2023-07-20 08:27 | MHC.OFFVIS ---
Intake Vital Signs 07/20/23 08:27 Height 4 ft 11 in Weight 94 lb BMI 19.0 BP 106/64 Intake Visit Reasons: 4-6 week IUD Check Intake Note: The patient agreed to use of a medical advisor during this encounter. Scribed for JOYCE Moran by Helen Bull medical advisor, on 07/20/2023 at 8:33 am EST. Registered Nurse Maternal Child Required: No Information Interpreted: non-clinical & clinical Road Test Examiner: Road Test Examiner Present (Aidyn) Allergies No Known Allergies Allergy (Verified 07/20/23 08:27) Is last menstrual period known: No Post menopausal: Yes Patient : No HPI HPI Comments History of Present Illness Details She is presenting for IUD check. She had the Mirena IUD placed on 06/17/23. Reports mild spotting but nothing problematic. Denies pain, abnormal discharge, or other concerns. 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 Sexual orientation: Straight/Heterosexual Gender identity: Female Cognitive needs: No Hearing needs: No Vision needs: No Female Reproductive History Menstrual Age of Menarche: 15 control method: progestin IUCD (Mirena 06/17/23, IUD strings visible 07/20/23) Date of last pap smear: 07/22/20 (negative) Physical Exam Vital Signs: Last Vital Signs BP 106/64 07/20/23 08:27 BMI result Body Mass Index 19.0 Const General: cooperative, healthy appearing, comfortable, no acute distress, well developed, alert and awake Other: General: Yes bladder normal to palpation External Female Exam: normal external appearance and normal appearance of the urethra Speculum Exam - Vagina: normal appearance of the vagina, normal palpation and normal vaginal discharge Speculum Exam - Cervix: normal appearance of the cervix, normal palpation and Other cervical findings present (IUD strings visible; small amount of brown blood present) Bimanual exam- vagina & uterus: normal bimanual exam, normal palpation, bladder normal to palpation and normal palpation Bimanual Exam- Adnexa, other: normal adnexae and no masses Assessment & Plan Assessment & Plan (1) IUD surveillance: Code(s): Z30.431 - Encounter for routine checking of intrauterine contraceptive device Plan: Discussed: Bleeding tends to taper down, some women do not bleed at all for months, some have unscheduled and random bleeding. Monitor bleeding and cramps for the next 1-2 months and contact office with any concerns or questions. All of her questions and concerns were addressed to the best of my ability and shared decision making. She is agreeable to plan of care. RTO for AG, EMB booked 09/2023. Coding Level of Care Code Est Pt Level 2 (49501) Diagnoses IUD surveillance Z30.431
== END 2023-07-20 08:41 | disposition home or self-care (01) ==
PROVIDERS: PCP Internal Medicine; Visit Provider Advanced Practice Midwife
DX: Z30.431 Encounter for routine checking of intrauterine contraceptive device (principal)
CPT/HCPCS: 99212

== ENCOUNTER → 2023-07-20 08:12 | Outpatient (BNVA) | payer BC, SELFPAY | PROVIDERS: PCP Internal Medicine; Visit Provider Advanced Practice Midwife ==

== ENCOUNTER 2023-09-29 07:58 | Outpatient (AMB) | payer BC, SELFPAY ==
--- NOTE | 2023-09-29 08:00 | MHC.OFFVIS ---
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 Has a Mirena therapeutically. She is doing well with no concerns. Attempting to eat a healthy diet with calcium and vitamin D and stays active with exercise (runs). Currently sexually active. STI testing offered; she accepts. Last pap smear; 2019. Last mammogram; 2022. Colonoscopy is UTD. Denies any family history of breast, ovarian or colon cancer. 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 Sexual orientation: Straight/Heterosexual Gender identity: Female Cognitive needs: No Hearing needs: No Vision needs: No Female Reproductive History Menstrual Age of Menarche: 15 control method: progestin IUCD (Mirena 06/17/23) Total pregnancies: 0 Date of last pap smear: 07/21/20 (neg pap and hpv) Date of Mammogram: 10/26/22 (Birad 1) Review of Systems Const All systems reviewed & are unremarkable except as noted in HPI and below Reports as per HPI Eyes Reports no additional complaints ENT Reports no additional complaints Card Reports no additional complaints Resp Reports no additional complaints GI Reports as per HPI and Reports no additional complaints Reports as per HPI Musc Reports no additional complaints Skin/Breast Reports as per HPI Neuro Reports no additional complaints Psych Reports no additional complaints Endo Reports no additional complaints Dada/Lymph Reports no additional complaints Aller/Immun Reports no additional complaints Physical Exam Vital Signs: Last Vital Signs BP 112/66 09/29/23 08:01 BMI result Body Mass Index 18.8 Const General: cooperative, healthy appearing, no acute distress, well developed and alert Orientation/consciousness: patient oriented x3 HEENT Head: Yes normal to inspection Eyes General: appearance normal, both eyes and all related structures Neck Neck: Yes normal visual inspection Thyroid: Thyroid normal Chest Chest palpation & inspection: normal inspection of the chest and other (no puckering, dimpling, peau de orange, retraction, discharge, masses) Breast/axilla inspection: normal inspection of the breasts Breast/axilla palpation: normal palpation of the breasts Resp Effort & Inspection: normal respiratory effort GI Inspection: Yes normal to inspection Palpation (GI): Soft to palpation Rectal Exam - Female: deferred General: Yes bladder normal to palpation External Female Exam: normal external appearance and normal appearance of the urethra Speculum Exam - Vagina: normal appearance of the vagina, normal palpation and normal vaginal discharge Speculum Exam - Cervix: normal appearance of the cervix, normal palpation and Other cervical findings present (IUD strings present) Bimanual exam- vagina & uterus: normal bimanual exam, normal palpation, uterine size normal, bladder normal to palpation, normal palpation and non-tender Bimanual Exam- Adnexa, other: no masses Skin General skin exam: no rashes or lesions noted Rashes: no rashes Neuro General: patient oriented x3 Cognition (Neuro): normal cognition Extrem General: Yes normal to inspection Psych Attitude: cooperative Thought process: Normal thought process present Office Procedures Endometrial Biopsy Details: The patient is here today for an endometrial biopsy for history of PMB/endometrial proliferation on EMB, to rule out any pathology including atypical, hyperplasia or cancer cells of the uterus. She was counseled regarding anticipatory guidance for the procedure including the risks for pain, infection, bleeding, perforation, potential injury to the tissues may include the cervix, uterus, tubes, bladder and bowels. These injuries may include further treatment and evaluation including surgery, blood transfusions, antibiotics, hospitalizations and anesthesia. Permanent injury and scarring can occur. She was consented for the procedure, and the consent forms were signed. She is agreeable to have the procedure today. All questions were answered. Endometrial Biopsy Procedure: The patient was placed in the dorsal lithotomy position and a sterile speculum inserted. Using aseptic technique for the procedure. The cervix was cleansed with Betadine x 3 swabs. A single toothed tenaculum was placed on the cervix for stabilization and the uterus was sounded to 7 cm with a 4mm pipelle for 4 passes. Minimal bleeding was observed. The tissue sample was placed in formalin in a patient labeled container by staff assisting and sent to the pathology department for processing and interpretation. The patient tolerate the procedure well and was in good condition when leaving the department. Endometrial Biopsy Post Procedure Care: Nothing in the vagina including: tampons, douching or intimacy until all the bleeding has subsided. There may be some post procedure bleeding for several days, this bleeding is usually light and may turn to a light brown or pink color. Mild cramps may occurs. Nothing in the vaginal including: tampons, douching, or intimacy until all the bleeding has subsided. You may take an over the counter mild analgesic such as Tylenol or Advil (if no allergies) per the manufactures recommendation on dosing, frequency, and follow the directions completely. Call the office if any: fever (over 100.4), flu like symptoms, abdominal pain (worse than cramping), foul smelling, infected appearing vaginal discharge, or heavy bleeding. You will be scheduled for a follow up visit for results, either in person or on the phone when the results are completed in a few weeks. If indicated: Use condoms to prevent and STI's, and only after the bleeding has stopped completely. [id number] Biopsy Results AMB Test Urine AMB Test Urine Negative Last Edit by ALAINA Christine on 09/29/23 08:11 Results Reviewed Results Reviewed: Laboratory Last Values Tst Clinic Negative 09/29/23 08:10 Assessment & Plan Assessment & Plan (1) Encounter for well woman exam with routine gynecological exam: Code(s): Z01.419 - Encounter for gynecological examination (general) (routine) without abnormal findings (2) PMB (postmenopausal bleeding): Code(s): N95.0 - Postmenopausal bleeding Plan Discussed: Current recommendations for pap smears per ASCCP guidelines. Breast awareness, periodic self breast exams and yearly mammogram. Maintain a healthy lifestyle, well balanced diet including Calcium 1,200 mg and Vitamin D 600 IU daily, and routine exercise. All of her questions and concerns were addressed to the best of my ability. RTO in 1 year for annual nutrition aide exam. EMB in 6 months. This note is constructed using voice recognition software. While every effort has been made to ensure accuracy, parachute supervisor errors may have been included. Orders: Orders AMB HCG Urine Test Today Z32.02 - Encounter for test, result negative Surgical Today N95.0 - Postmenopausal bleeding Coding Level of Care Code Est Pt Prev Care 40-64y(34848) Diagnoses Encounter for well woman exam with routine gynecological exam Z01.419 PMB (postmenopausal bleeding) N95.0 CPT Codes Endometrial Biopsy - CPT: 68313-[id number] Biopsy ([id number]) Comment additional EMB procedure
[2023-09-29 08:01] VITALS: BP 112/66; BMI 18.8
== END 2023-09-29 08:42 | disposition home or self-care (01) ==
PROVIDERS: PCP Internal Medicine; Visit Provider Advanced Practice Midwife
DX: Z01.419 Encounter for gynecological examination (general) (routine) without abnormal findings (principal); N95.0 Postmenopausal bleeding; Z32.02 Encounter for pregnancy test, result negative
CPT/HCPCS: 58100; 99396

== ENCOUNTER 2023-09-29 07:58 | Outpatient (REF) | payer BC, SELFPAY | END 2023-09-29 07:59 | disposition home or self-care (01) | LOC: HO.LAB 07:58 | PROVIDERS: PCP Internal Medicine; Visit Provider Advanced Practice Midwife | DX: N95.0 Postmenopausal bleeding (principal) | CPT/HCPCS: 58100; 81025; 88305 ==

== ENCOUNTER → 2023-11-01 09:15 | Outpatient (BNV) | payer BC, SELFPAY | PROVIDERS: PCP Internal Medicine; Visit Provider Radiology Diagnostic Radiology | DX: Z12.31 Encounter for screening mammogram for malignant neoplasm of breast (principal) | CPT/HCPCS: 77063; 77067 ==

== ENCOUNTER 2023-11-01 09:18 | Outpatient (REF) | payer BC, SELFPAY ==
--- NOTE | ~2023-11-01 | MM_ITS ---
EXAMINATION: MM SCREENING DIGITAL BREAST TOMOSYNTHESIS, BILATERAL CLINICAL INFORMATION: Screening. Asymptomatic. COMPARISON: Mammography: This study is compared with prior exams dating back to 2018. TECHNIQUE: Digital breast tomosynthesis is performed in both the craniocaudal and mediolateral oblique views along with computer-aided detection (CAD). Synthesized 2D images are generated from the tomosynthesis. FINDINGS: The breasts are extremely dense, which lowers the sensitivity of mammography (ACR BI-RADS breast composition Category d). There are no significant masses, abnormal calcifications, or other abnormalities. MM/MM tomosynthesis screening BI IMPRESSION: No mammographic evidence of malignancy. ASSESSMENT: BI-RADS BI-RADS 1 - Negative RECOMMENDATION: Routine annual mammography screening. 1 year F/U This examination should not preclude the clinical evaluation of a suspicious palpable abnormality. This patient's information was entered into a reminder system with a target due date for their next mammogram.
== END 2023-11-01 09:19 | disposition home or self-care (01) ==
LOC: HO.MAMMO 09:18
PROVIDERS: PCP Internal Medicine; Visit Provider Internal Medicine
DX: Z12.31 Encounter for screening mammogram for malignant neoplasm of breast (principal)
CPT/HCPCS: 77063; 77067

== ENCOUNTER 2024-03-27 08:35 | Outpatient (REF) | payer BC, SELFPAY | END 2024-03-27 08:36 | disposition home or self-care (01) | LOC: HO.LNP 08:35 | PROVIDERS: PCP Internal Medicine; Visit Provider Advanced Practice Midwife | DX: N95.0 Postmenopausal bleeding (principal) | CPT/HCPCS: 58100; 81025; 88305 ==

== ENCOUNTER 2024-03-27 08:35 | Outpatient (AMB) | payer BC, SELFPAY ==
[2024-03-27 08:37] VITALS: BP 102/64; BMI 18.9
--- NOTE | 2024-03-27 08:37 | MHC.OFFVIS ---
Vital Signs 03/27/24 08:37 Height 4 ft 11 in Weight 93 lb 8 oz BMI 18.9 BP 102/64 Blood Pressure Location Rt brachial Position Sitting Intake Visit Reasons: EMB Allergies No Known Allergies Allergy (Verified 03/27/24 08:39) HPI Comments Details: Patient is here today for a follow up EMB due to proliferative endometrium noted on biopsy history of postmenopausal bleeding currently has a Mirena IUD user. She reports spotting in January for 2-3 days. 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 Sexual orientation: Straight/Heterosexual Gender identity: Female Cognitive needs: No Hearing needs: No Vision needs: No Female Reproductive History Menstrual Age of Menarche: 15 control method: progestin IUCD Review of Systems Const All systems reviewed & are unremarkable except as noted in HPI and below Physical Exam Vital Signs: Last Vital Signs BP 102/64 03/27/24 08:37 BMI result Body Mass Index 18.9 Const General: cooperative, healthy appearing and no acute distress Orientation/consciousness: patient oriented x3 GI Inspection: Yes normal to inspection Palpation (GI): Soft to palpation and Other GI palpation findings present (Nontender) Rectal Exam - Female: visual inspection normal General: Yes bladder normal to palpation External Female Exam: normal appearance of the urethra Speculum Exam - Vagina: normal appearance of the vagina, normal palpation and normal vaginal discharge Speculum Exam - Cervix: normal appearance of the cervix, normal palpation and Other cervical findings present (IUD strings present at os) Bimanual exam- vagina & uterus: normal bimanual exam, normal palpation, uterine size normal, bladder normal to palpation, normal palpation, uterine shape normal and non-tender Bimanual Exam- Adnexa, other: normal adnexae Neuro General: patient oriented x3 Office Procedures Endometrial Biopsy Details: The patient is here today for an endometrial biopsy due to PMB to rule out any pathology including atypical, hyperplasia or cancer cells of the uterus. She was counseled regarding anticipatory guidance for the procedure including the risks for pain, infection, bleeding, perforation, potential injury to the tissues may include the cervix, uterus, tubes, bladder and bowels. These injuries may include further treatment and evaluation including surgery, blood transfusions, antibiotics, hospitalizations and anesthesia. Permanent injury and scarring can occur. She was consented for the procedure, and the consent forms were signed. She is agreeable to have the procedure today. All questions were answered. Endometrial Biopsy Procedure: The patient was placed in the dorsal lithotomy position and a sterile speculum inserted. Using aseptic technique for the procedure. The cervix was cleansed with Betadine x 3 swabs. A single toothed tenaculum was placed on the cervix for stabilization and the uterus was sounded to 6.5 cm with a 4mm pipelle for 3 passes. Minimal bleeding was observed. The tissue sample was placed in formalin in a patient labeled container by staff assisting and sent to the pathology department for processing and interpretation. The patient tolerate the procedure well and was in good condition when leaving the department. Endometrial Biopsy Post Procedure Care: Nothing in the vagina including: tampons, douching or intimacy until all the bleeding has subsided. There may be some post procedure bleeding for several days, this bleeding is usually light and may turn to a light brown or pink color. Mild cramps may occurs. Nothing in the vaginal including: tampons, douching, or intimacy until all the bleeding has subsided. You may take an over the counter mild analgesic such as Tylenol or Advil (if no allergies) per the manufactures recommendation on dosing, frequency, and follow the directions completely. Call the office if any: fever (over 100.4), flu like symptoms, abdominal pain (worse than cramping), foul smelling, infected appearing vaginal discharge, or heavy bleeding. If indicated: Use condoms to prevent and STI's, and only after the bleeding has stopped completely. Return to the office in 2 weeks for results and plan of care. This note is constructed using voice recognition software. While every effort has been made to ensure accuracy, transportation dispatch manager errors may have been included. [id number] Biopsy Results AMB Test Urine AMB Test Urine Negative Last Edit by Maria Esther Greco CMA on 03/27/24 08:54 Results Reviewed Results Reviewed: Laboratory Last Values [facility] Clinic Negative 03/27/24 08:50 Assessment & Plan Assessment & Plan (1) PMB (postmenopausal bleeding): Code(s): N95.0 - Postmenopausal bleeding Category: Medical Plan See EMB notes. Return to the office for test results in 2 weeks. Orders: Orders AMB HCG Urine Test Today Z32.02 - Encounter for test, result negative Coding Level of Care Code Procedure Only Diagnoses PMB (postmenopausal bleeding) N95.0 CPT Codes Endometrial Biopsy - CPT: 28804-Fcjrczabuew Biopsy ([id number])
== END 2024-03-27 09:17 | disposition home or self-care (01) ==
PROVIDERS: PCP Internal Medicine; Visit Provider Advanced Practice Midwife
DX: N95.0 Postmenopausal bleeding (principal); Z32.02 Encounter for pregnancy test, result negative
CPT/HCPCS: 58100

== ENCOUNTER 2024-06-29 08:58 | Outpatient (REF) | payer BC, SELFPAY | END 2024-06-29 08:59 | disposition home or self-care (01) | LOC: HO.LAB 08:58 | PROVIDERS: PCP Internal Medicine; Visit Provider Advanced Practice Midwife | DX: N95.0 Postmenopausal bleeding (principal) | CPT/HCPCS: 58100; 88305 ==

== ENCOUNTER 2024-06-29 08:58 | Outpatient (AMB) | payer BC, SELFPAY ==
--- NOTE | 2024-06-29 09:03 | A.OFFVIS_ITS ---
Vital Signs 06/29/24 09:09 Height 4 ft 11 in Weight 93 lb BMI 18.8 BP 104/60 Intake Visit Reasons: EMB/30 mins Profiling Machine Setup Operator: Profiling Machine Setup Operator Present (Cleo) Allergies No Known Allergies Allergy (Verified 06/29/24 09:05) HPI Comments Details: Patient is here today for a first year endometrial biopsy surveillance, due to history of proliferative EMB results during postmenopausal state with prior postmenopausal bleeding. Current Mirena IUD user. [facility] Medical History (Updated 06/29/24 @ 09:29 by Linda Whitman CNM) IUD (intrauterine device) in place History of endometrial biopsy Bloated abdomen PMB (postmenopausal bleeding) Breast pain Hot flashes Hx of anorexia nervosa Hx of bipolar disorder Surgical History Hx of foot surgery Family History Mother Hypertension Social History Household Members: Significant Other Housing: House Alcohol intake: current Alcohol intake frequency: a few times a week Patient Tobacco Use Status: Never used Tobacco e-Cigarette/Vaping Use: Never Used Second Hand Smoke Exposure: No service: No Current occupational status: employed 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 Sexual orientation: Straight/Heterosexual Gender identity: Female Cognitive needs: No Hearing needs: No Vision needs: No Female Reproductive History Menstrual Age of Menarche: 15 Review of Systems Const All systems reviewed & are unremarkable except as noted in HPI and below Physical Exam Vital Signs: Last Vital Signs BP 104/60 06/29/24 09:09 BMI result Body Mass Index 18.8 Const General: cooperative, healthy appearing and no acute distress Orientation/consciousness: patient oriented x3 GI Inspection: Yes normal to inspection Palpation (GI): Soft to palpation and Other GI palpation findings present (Nontender) Rectal Exam - Female: visual inspection normal General: Yes bladder normal to palpation External Female Exam: normal appearance of the urethra Speculum Exam - Vagina: normal appearance of the vagina, normal palpation and normal vaginal discharge Speculum Exam - Cervix: normal appearance of the cervix, normal palpation and Other cervical findings present (IUD strings in place) Bimanual exam- vagina & uterus: normal bimanual exam, normal palpation, uterine size normal, bladder normal to palpation, normal palpation, uterine shape normal and non-tender Bimanual Exam- Adnexa, other: normal adnexae Neuro General: patient oriented x3 Office Procedures Endometrial Biopsy Details: The patient is here today for an endometrial biopsy due to postmenopausal bleeding surveillance to rule out any pathology including atypical, hyperplasia or cancer cells of the uterus. She was counseled regarding anticipatory guidance for the procedure including the risks for pain, infection, bleeding, perforation, potential injury to the tissues may include the cervix, uterus, tubes, bladder and bowels. These injuries may include further treatment and evaluation including surgery, blood transfusions, antibiotics, hospitalizations and anesthesia. Permanent injury and scarring can occur. She was consented for the procedure, and the consent forms were signed. She is agreeable to have the procedure today. All questions were answered. Endometrial Biopsy Procedure: The patient was placed in the dorsal lithotomy position and a sterile speculum inserted. Using aseptic technique for the procedure. The cervix was cleansed with Betadine x 3 swabs. A single toothed tenaculum was placed on the cervix for stabilization and the uterus was sounded to 6.5 cm with a 4mm pipelle, and tissue sample obtained. Minimal bleeding was observed. The tissue sample was placed in formalin in a patient labeled container by staff assisting and sent to the pathology department for processing and interpretation. The patient tolerate the procedure well and was in good condition when leaving the department. Endometrial Biopsy Post Procedure Care: Nothing in the vagina including: tampons, douching or intimacy until all the bleeding has subsided. There may be some post procedure bleeding for several days, this bleeding is usually light and may turn to a light brown or pink color. Mild cramps may occurs. Nothing in the vaginal including: tampons, douching, or intimacy until all the bleeding has subsided. You may take an over the counter mild analgesic such as Tylenol or Advil (if no allergies) per the manufactures recommendation on dosing, frequency, and follow the directions completely. Call the office if any: fever (over 100.4), flu like symptoms, abdominal pain ( worse than cramping), foul smelling, infected appearing vaginal discharge, or heavy bleeding. If indicated: Use condoms to prevent and STI's, and only after the bleeding has stopped completely. Return to the office in 2 weeks for results and plan of care. This note is constructed using voice recognition software. While every effort has been made to ensure accuracy, deck hand errors may have been included. 52954-Oqxsffussjh Biopsy Assessment & Plan Assessment & Plan (1) History of endometrial biopsy: Code(s): Z92.89 - Personal history of other medical treatment (2) History of postmenopausal bleeding: Code(s): Z87.42 - Personal history of other diseases of the female genital tract Plan See procedure notes. Orders: Orders Surgical Today N95.0 - Postmenopausal bleeding Coding Level of Care Code Procedure Only Diagnoses History of endometrial biopsy Z92.89 History of postmenopausal bleeding Z87.42 CPT Codes Endometrial Biopsy - CPT: 35062-Atqtsfpmsgg Biopsy ([id number])
[2024-06-29 09:09] VITALS: BP 104/60; BMI 18.8
== END 2024-06-29 11:18 | disposition home or self-care (01) ==
PROVIDERS: PCP Internal Medicine; Visit Provider Advanced Practice Midwife
DX: N95.0 Postmenopausal bleeding (principal)
CPT/HCPCS: 58100

== ENCOUNTER 2024-06-29 09:42 | Outpatient (AMB) | payer BC, SELFPAY ==
--- NOTE | 2024-06-29 09:43 | A.OFFPC_ITS ---
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 Required: No Accompanied by: Self / Same As Patient Allergies No Known Allergies Allergy (Verified 06/29/24 09:45) Medication List - Last Reconciled 06/29/24 by Ramu Wesley MD calcium carbonate (Calcium 500) 500 mg PO DAILY divalproex ER mg PO folic acid 0.8 mg PO DAILY inulin (Children's Fiber Select Gummies) grams PO levonorgestrel (Mirena) intrauterine Tobacco use date assessed: 06/29/24 Dental Screening Dental Screen Date: 06/29/24 Did you have a dental visit in the last 12 months?: Yes Did you have a dental problem in the last 6 months where you did not have access to dental care?: No Was dental information given to patient?: Patient has dentist HPI ANNUAL HPI Details healthy [facility] Medical History (Updated 06/29/24 @ 09:29 by Linda Whitman CNM) IUD (intrauterine device) in place History of endometrial biopsy Bloated abdomen PMB (postmenopausal bleeding) Breast pain Hot flashes Hx of anorexia nervosa Hx of bipolar disorder Surgical History Hx of foot surgery Family History Mother Hypertension Social History Household Members: Significant Other Housing: House Alcohol intake: current Alcohol intake frequency: a few times a week Patient Tobacco Use Status: Never used Tobacco Tobacco use type: Cigarette e-Cigarette/Vaping Use: Never Used Second Hand Smoke Exposure: No service: No Current occupational status: employed 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 1. Little interest or pleasure in doing things: not at all 2. Feeling down, depressed, or hopeless: not at all 3. Trouble falling or staying asleep, or sleeping too much: not at all 4. Feeling tired or having little energy: not at all 5. Poor appetite or overeating: not at all 6. Feeling bad about yourself - or that you are a failure or have let yourself or your family down: not at all 7. Trouble concentrating on things, such as reading the newspaper or watching television: not at all 8. Moving or speaking so slowly that other people could have noticed. Or the opposite - being so fidgety or restless that you have been moving around a lot more than usual: not at all 9. Thoughts that you would be better off or of hurting yourself in some way: not at all Total score: 0 Source: Developed by Drs. Elan Reaves, Roxi Nichols, Kenji Schwartz and colleagues, with an educational pita from [employer]. Thrive Questionnaire Date Thrive assessed: 06/27/24 I am a: Patient What is your living situation today?: I have a steady place to live Within the past 12 months, did the food you bought not last and you didn't have the money to get more?: Never true Within the past 12 months, did you worry whether your food would run out before you got money to buy more?: Never true Do you have trouble paying for medicines?: No Do you have trouble getting transportation to medical appointments?: No Do you have trouble paying your heating and electricity bill?: No Do you have trouble taking care of your child, family member or friend?: No Do you have trouble with day-to-day activities such as bathing, preparing meals, shopping, managing finances, etc.?: No Are you currently unemployed and looking for a job?: No Are you interested in more education?: No Please select the resources that you would like help with: None Currently or been in a relationship where the following occur: No concerns reported THRIVE Score: 0 AUDIT C Alcohol Use Questionnaire (AUDIT-C) 1. How often do you have a drink containing alcohol?: 2-3 times a week 2. How many drinks containing alcohol do you have on a typical day when you are drinking?: 1 or 2 3. How often do you have six or more drinks on one occasion?: Never Total Score: 3 MALI-7 AMB Questionnaire MALI-7 Date MALI - 7 assessed: 06/29/24 Feeling nervous, anxious, or on edge: 0 = Not at all Not being able to stop or control worryin = Not at all Worrying too much about different things: 0 = Not at all Trouble relaxin = Not at all Being so restless that it is hard to sit still: 0 = Not at all Becoming easily annoyed or irritable: 0 = Not at all Feeling afraid as if something awful might happen: 0 = Not at all Total MALI-7 score (0-4 normal; 5-9 mild; 10-14 moderate; 15-21 severe): 0 Source: Developed by Drs. Elan Reaves, Roxi Nichols, Kenji Schwartz and colleagues, with an educational pita from [employer]. Review of Systems Const Denies chills, Denies fatigue, Denies headache(s) and Denies weight loss Eyes Denies change in vision, Denies diplopia and Denies eye pain ENT Denies vertigo, Denies dizziness, Denies headache(s) and Denies nasal discharge Card Denies chest pain, Denies rapid heart rate and Denies dyspnea on exertion Resp Denies chest congestion, Denies cough, Denies pain with cough and Denies dyspnea on exertion GI Denies abdominal pain, Denies hematochezia and Denies change in bowel habits Musc Denies myalgias, Denies arthralgias and Denies joint swelling Skin/Breast Denies lesions and Denies unusual bruising Neuro Denies vertigo, Denies dizziness, Denies headache(s) and Denies focal weakness Endo Denies fatigue Physical exam (Primary Care) Vital Signs: Last Vital Signs Pulse 64 06/29/24 09:44 BP 108/58 L 06/29/24 09:44 Pulse Ox 99 06/29/24 09:44 Oxygen Delivery Method Room Air 06/29/24 09:44 BMI result Body Mass Index 18.6 Tobacco/Smoking Status: Tobacco use Status Tobacco use date assessed 06/29/24 06/29/24 09:48 Patient Tobacco Use Status Never used Tobacco 06/29/24 09:48 Tobacco use type Cigarette 06/29/24 09:48 e-Cigarette/Vaping Use Never Used 06/29/24 09:48 PHQ-9: PHQ-9 Score PHQ-9: Total score 0 06/29/24 09:48 Thrive Assessment: Date of Thrive Assessment Date Thrive assessed 06/27/24 06/29/24 09:48 Currently or been in a relationship where the following occur: No concerns reported Const General: cooperative, healthy appearing and no acute distress Orientation/consciousness: oriented to person, oriented to place and oriented to time HENMT Head: Yes normal to inspection, Yes normocephalic and Yes atraumatic Mouth: Normal oral and palatal mucosa present and tongue normal Throat: Yes posterior oropharynx normal and Yes uvula midline Eyes General: appearance normal, both eyes and all related structures Neck Neck: Yes normal visual inspection, Yes full ROM and Yes no lymphadenopathy Thyroid: Thyroid normal Carotids: normal carotid upstroke Chest Chest palpation & inspection: normal inspection of the chest Resp Effort & Inspection: normal respiratory effort and able to speak in complete sentences Auscultation: clear to auscultation bilaterally Cardio Jugular venous distension: no JVD Palpation: normal PMI Rate: regular rate Rhythm: regular rhythm Heart sounds: S1 normal heart sound present and S2 normal heart sound present GI Inspection: Yes normal to inspection Palpation (GI): Soft to palpation and No hepatosplenomegaly present Auscultation: normal bowel sounds General: Yes no CVA tenderness Back/Spine/Pelvis Back: no CVA tenderness Skin General skin exam: no rashes or lesions noted Neuro General: oriented to person, oriented to place and oriented to time Extrem General: Yes normal to inspection and Yes full ROM Assessment and Plan Assessment & Plan (1) Physical exam: Code(s): Z00.00 - Encounter for general adult medical examination without abnormal findings Plan: stable; do labs Orders: Orders Lipid Panel Today Z13.220 - Encounter for screening for lipoid disorders Complete Blood Count Auto Diff Today Z13.0 - Encounter for screening for diseases of the blood and blood-forming organs and certain disorders involving the immune mechanism Comprehensive Terry. Panel Fast Today Z13.9 - Encounter for screening, unspecified Thyroid Stimulating Hormone Today Z13.29 - Encounter for screening for other suspected endocrine disorder Coding Level of Care Code Est Pt Prev Care 40-64y(45251) Diagnoses Physical exam Z00.00
[2024-06-29 09:44] VITALS: BP 108/58; PULSE 64; O2SAT 99; BMI 18.6
== END 2024-06-29 10:05 | disposition home or self-care (01) ==
PROVIDERS: PCP Internal Medicine; Visit Provider Internal Medicine
DX: Z00.00 Encounter for general adult medical examination without abnormal findings (principal)

== ENCOUNTER 2024-07-07 07:25 | Outpatient (REF) | payer BC, SELFPAY ==
[2024-07-07 07:33] LABS: MANUAL DIFF FLAG NO
[2024-07-07 07:40] LABS: Basophils Absolute Auto 0.1 X10*3/uL (0.0-0.2); Basophils Percent Auto 0.9 % (0-2); Eosinophils Absolute Auto 0.2 X10*3/uL (0.0-0.4); Eosinophils Percent Auto 3.3 % (0-4); Hemoglobin 13.9 g/dl (12.0-16.0); Imm Gran Abs Auto 0.01 X10*3/uL (0.00-0.03); Imm Gran Pct Auto 0.2 % (0.0-0.4); Lymphocytes Absolute Auto 2.9 X10*3/uL (1.2-4.9); Lymphocytes Percent Auto 49.7 % (20-40); Mean Corpuscular HGB Conc 33.9 g/dl (31.0-35.0); Mean Corpuscular Hemoglobin 32.7 pg (27.0-33.0); Mean Corpuscular Volume 96.5 fL (80.0-98.0); Mean Platelet Volume 10.7 fL (9.4-12.3); Monocytes Absolute Auto 0.6 X10*3/uL (0.1-1.2); Monocytes Percent Auto 10.5 % (2-11); Neutrophils Absolute Auto 2.1 x10*3/uL (2.0-8.3); Neutrophils Percent Auto 35.4 % (45-73); Platelet Count 197 X10*3/uL (160-400); Red Blood Count 4.25 X10*6/uL (4.20-5.50); White Blood Count 5.8 X10*3/uL (4.8-10.8)
[2024-07-07 08:14] LABS: Alanine Aminotransferase 21 U/L (0-31); Albumin Level 4.1 g/dL (3.5-5.0); Alkaline Phosphatase 44 U/L (39-117); Anion Gap 12 (12-20); Aspartate Amino Transferase 30 U/L (5-31); Bilirubin Total 0.3 mg/dL (0.0-1.0); Blood Urea Nitrogen 15 mg/dL (9-16); Calcium 9.6 mg/dL (8.4-10.2); Carbon Dioxide 29 mmol/L (22-29); Chloride 104 mmol/L (96-108); Cholesterol 165 mg/dL (<200); Estimated Glomerular Filt Rate > 60; Glucose Fasting 92 mg/dL (60-99); HDL Cholesterol 61 mg/dL (>40); LDL Cholesterol Calculated 92 mg/dL (<100); Potassium 4.6 mmol/L (3.3-5.1); Sodium 140 mmol/L (135-145); Total Protein 7.5 g/dL (6.5-8.0); Triglycerides 60 mg/dL (<150)
== END 2024-07-07 07:26 | disposition home or self-care (01) ==
LOC: HO.LAB 07:25
PROVIDERS: PCP Internal Medicine; Visit Provider Internal Medicine
DX: Z13.220 Encounter for screening for lipoid disorders (principal); Z13.0 Encounter for screening for diseases of the blood and blood-forming organs and certain disorders involving the immune mechanism; Z13.9 Encounter for screening, unspecified; Z13.29 Encounter for screening for other suspected endocrine disorder
CPT/HCPCS: 36415; 80053; 80061; 84443; 85025

== ENCOUNTER 2024-08-02 12:41 | Outpatient (RCR) | payer BC, SELFPAY ==
--- NOTE | 2024-08-02 13:57 | MHC.OT.EP ---
[address] [phone] Occupational Therapy Plan of Care Patient Name: Janie Hoyt Date of Evaluation: 08/02/24 Diagnosis: R elbow pain Pain Location: Pt reports pain to lateral elbow / olecranon process but only when weight lifting and elbow is in extension Pain Score: 2 Pain Scale Used: Numeric (0 - 10) Aggravating Factors: Pt reports pain only when working out w/ weight lifting Alleviating Factors: Assessment: Pt reports in Late May she was picking up a 24 pack of soda and felt pain in her lateral elbow/ olecranon process. She reports feeling as though she pulled a muscle and reports improvement over time. She had a PC appointment and mentioned to the MD her pain only occurs when weight lifting (2 xs a week). She could not reciprocate the pain today and felt 0/10 pain w/ palpation of ECRB (origin) distal tricep , lateral or medial epicondyle, or olecranon process. She has Full ROM, we reviewed discussed benefits of moist heat, pt was given stretches, and she was educated on taping techniques and/or use of a compression sleeve while working out Frequency and Duration: The patient will be seen 1x aweek for 4 weeks Short Term Goals: SEE BELOW Gang Ripsaw Operator Goals: PT WILL BE COMPLAINT W/ HEP Pt will deny pain while using weights to work out her UE Pt will RPLOF Treatment Plan: Therapeutic Exercise Therapeutic Activity Home Exercise Program Neuro Re-ed Patient Education ADL Training Ultrasound NMES Iontophoresis MHP Cold Packs Joint Mobilization Soft Tissue Mobilization Kinesiotaping pt will trial modalities (moist heat/ compression sleeve) and HEP at home and will come to therapy prn Electronically Signed By: Sammi Hinojosa OTR/L Please Sign and return to therapist. Thank you once again for your referral.
== END 2025-01-29 10:54 | disposition home or self-care (01) ==
LOC: HO.OT 12:41
PROVIDERS: PCP Internal Medicine; Visit Provider Internal Medicine
DX: M77.8 Other enthesopathies, not elsewhere classified (principal)
CPT/HCPCS: 97140; 97165; 97535

== ENCOUNTER 2024-10-04 09:14 | Outpatient (AMB) | payer BC, SELFPAY ==
--- OUTSIDE RECORDS SUMMARY | 2024-10-04 09:18 | XMS_ITS | Patient Health Record ---
Author Organization [facility] [place] Address [address] [place] [address] Care Team Providers Care Pricing Coordinator Name Role Phone Ramu Wesley MD Primary Care Provider Unavaila Almas Milligan Unavailable [phone] Allergies No Known Allergies Reason For Referral No Information Medications Medication SIG (Take, Route, Frequency, Duration) Notes Start Date End Date Status Calcium Active Divalproex Sodium 750 1 tablet Orally Once a day Active Folic Acid Active Fiber Adult Gummies Active Multi-Vitamin Active Prempro Not-Taking Incassia 0.35 MG 1 tablet Orally Once a day for 28 day(s) Active Iron Active Immunizations Vaccine Route Administration Date Status Comme nts COVID-19 Pfizer BioNTech Vaccine Unknown 11/22/2020 Administered 1st 10/22/2020 Social History Tobacco Use: Social History Observation Description Date Details (start date - stop date) Former Smoker NA - NA Tobacco Use/Smoking Question Answer Notes Are you [...] Are you an other tobacco user? No Problems Problem Type SNOMED Code ICD Code Onset Dates Problem Status W/U Status Risk Notes Problem [id number] Ganglion of foot, left (M67.472) Active confirmed Plan Of Treatment Pending Test Test Name Order Date 97131- Ganglion Cyst Injection/Aspiratio n 06/13/2015- Ganglion Cyst Injection/Aspiratio n 04/26/2016- Ganglion Cyst Injection/Aspiratio n 06/26/2021 Insurance Providers Payer Name Payer Address Payer Phone Subscriber Number Group Number Insured Name Patient Relationship to Insured Coverage Start Date Coverage End Date [facility] [address] [place] [address] [phone] [id number] Janie Hoyt Self - patient is the insured Medical (General) History Medical History History ICD Code Psychiatric disorder - Bipolor COVID-19 Surgical History Surgery Date(Month/Year) Exc Gang Cyst Left Foot 07/16/2015
--- NOTE | 2024-10-04 09:19 | A.OFFVIS_ITS ---
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 She is doing well with no sales enablement manager concerns. Currently sexually active. Denies any vaginal dryness or irritation. STI testing offered; she declined. Attempting to eat a healthy diet with calcium and vitamin D and stays active with exercise-daily runner. Last pap smear; 09/2020. History of Mirena use her due to proliferative EMB results after episode of postmenopausal bleeding. Mirena IUD was inserted 06/22/2023. Last mammogram; 2023. Colonoscopy is UTD. Denies any family history of breast, ovarian or colon cancer. [facility] Medical History (Updated 10/04/24 @ 09:54 by Linda Whitman CNM) IUD (intrauterine device) in place History of endometrial biopsy Bloated abdomen PMB (postmenopausal bleeding) Breast pain Hot flashes Hx of anorexia nervosa Hx of bipolar disorder Surgical History Hx of foot surgery Family History Mother Hypertension Social History Household Members: Significant Other Housing: House Alcohol intake: current Alcohol intake frequency: a few times a week Patient Tobacco Use Status: Never used Tobacco Tobacco use type: Cigarette e-Cigarette/Vaping Use: Never Used Second Hand Smoke Exposure: No service: No Current occupational status: employed 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 Sexual orientation: Straight/Heterosexual Gender identity: Female Cognitive needs: No Hearing needs: No Vision needs: No Female Reproductive History Menstrual Age of Menarche: 15 control method: progestin IUCD (Mirena 06/25) Total pregnancies: 0 Date of last pap smear: 07/21/20 (neg pap and hpv) Date of Mammogram: 11/01/23 (Birad 1) Review of Systems Const All systems reviewed & are unremarkable except as noted in HPI and below Reports as per HPI Eyes Reports no additional complaints ENT Reports no additional complaints Card Reports no additional complaints Resp Reports no additional complaints GI Reports as per HPI and Reports no additional complaints Reports as per HPI Musc Reports no additional complaints Skin/Breast Reports as per HPI Neuro Reports no additional complaints Psych Reports no additional complaints Endo Reports no additional complaints Dada/Lymph Reports no additional complaints Aller/Immun Reports no additional complaints Physical Exam Vital Signs: Last Vital Signs BP 100/64 10/04/24 09:21 BMI result Body Mass Index 18.6 Const General: cooperative, healthy appearing, no acute distress, well developed and alert Orientation/consciousness: patient oriented x3 HEENT Head: Yes normal to inspection Eyes General: appearance normal, both eyes and all related structures Neck Neck: Yes normal visual inspection Thyroid: Thyroid normal Chest Chest palpation & inspection: normal inspection of the chest and other (no puckering, dimpling, peau de orange, retraction, discharge, masses) Breast/axilla inspection: normal inspection of the breasts Breast/axilla palpation: normal palpation of the breasts Resp Effort & Inspection: normal respiratory effort GI Inspection: Yes normal to inspection Palpation (GI): Soft to palpation Rectal Exam - Female: deferred General: Yes bladder normal to palpation External Female Exam: normal external appearance and normal appearance of the urethra Speculum Exam - Vagina: normal appearance of the vagina, normal palpation and normal vaginal discharge Speculum Exam - Cervix: normal appearance of the cervix and normal palpation Bimanual exam- vagina & uterus: normal bimanual exam, normal palpation, uterine size normal, bladder normal to palpation, normal palpation, non-tender and other (IUD strings at the os) Bimanual Exam- Adnexa, other: no masses Skin General skin exam: no rashes or lesions noted Rashes: no rashes Neuro General: patient oriented x3 Cognition (Neuro): normal cognition Extrem General: Yes normal to inspection Psych Attitude: cooperative Thought process: Normal thought process present Assessment & Plan Assessment & Plan (1) Encounter for annual routine gynecological examination: Code(s): Z01.419 - Encounter for gynecological examination (general) (routine) without abnormal findings Category: Medical Plan Discussed: Current recommendations for pap smears per ASCCP guidelines. Breast awareness, periodic self breast exams and yearly mammogram. Maintain a healthy lifestyle, well balanced diet including Calcium 1,200 mg and Vitamin D 600 IU daily, and routine exercise. Contact the office with any postmenopausal bleeding. Patient verbalizes understanding and agrees to the plan of care. She was given opportunity to ask questions and all questions were answered to the best of my ability. RTO in 1 year for annual sales enablement manager exam. This note is constructed using voice recognition software. While every effort has been made to ensure accuracy, state pilot errors may have been included. Coding Level of Care Code New Pt Prev Care 40-64y(40074) Diagnoses Encounter for annual routine gynecological examination Z01.419
[2024-10-04 09:21] VITALS: BP 100/64; BMI 18.6
== END 2024-10-04 09:58 | disposition home or self-care (01) ==
PROVIDERS: PCP Internal Medicine; Visit Provider Advanced Practice Midwife
DX: Z01.419 Encounter for gynecological examination (general) (routine) without abnormal findings (principal)
CPT/HCPCS: 99396; 99459

== ENCOUNTER → 2024-10-04 09:14 | Outpatient (BNVA) | payer BC, SELFPAY | PROVIDERS: PCP Internal Medicine; Visit Provider Advanced Practice Midwife ==

== ENCOUNTER → 2024-11-06 09:30 | Outpatient (BNV) | payer BC, SELFPAY | PROVIDERS: PCP Internal Medicine; Visit Provider Internal Medicine | DX: Z12.31 Encounter for screening mammogram for malignant neoplasm of breast (principal) | CPT/HCPCS: 77063; 77067 ==

== ENCOUNTER 2025-07-05 10:30 | Outpatient (AMB) | payer BC, SELFPAY ==
[2025-07-05 10:33] VITALS: BP 112/60; PULSE 74; RESP 18; TEMP 36.2; O2SAT 96; BMI 18.9
--- NOTE | 2025-07-05 10:33 | MHC.PC.OV ---
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 Required: No Accompanied by: Self / Same As Patient Allergies No Known Allergies Allergy (Verified 07/05/25 10:51) Medication List - Last Reconciled 07/05/25 by WILBER Matson calcium carbonate (Calcium 500) 500 mg PO DAILY divalproex ER mg PO folic acid 0.8 mg PO DAILY inulin (Children's Fiber Select Gummies) grams PO levonorgestrel (Mirena) intrauterine terbinafine HCl 250 mg PO DAILY Tobacco use date assessed: 07/05/25 Dental Screening Dental Screen Date: 07/05/25 Did you have a dental visit in the last 12 months?: Yes Did you have a dental problem in the last 6 months where you did not have access to dental care?: No Was dental information given to patient?: Patient has dentist HPI annual exam/dyana Lainer HPI Details Dentist: up to date Eye:up to date Snellen: Right: Left: Corrected vision:yes, glasses STI screening: Colonoscopy: 53 due at 63 mammogram: up to date Pap Smer: getting this every 3 years PHQ-9: Flu: up to date COVID: x6 Tdap: 2022-she got scratched by a dog Diet:regular Exercise:Reports that she is runner The patient reports left great toenail that was treated with terbinafine 250 mg for an extended period. The new toenail is growing under the nail of concern, which is darker and thicker than other nails. Explained to the patient the old nail will eventually fall off. The patient has hx of bipolar that is managed with divalproex ER 250 mg daily, reports having the level checked recently and it was normal. She is following up with psychiatry every six-month. Reports history of anorexia that is well-controlled at this time She denies chest pain, shortness of breath, heart palpitation or dizziness Denies abdominal pain/change in bowel habits Denies any urinary symptoms [facility] Medical History (Updated 07/05/25 @ 11:43 by WILBER Matson) IUD (intrauterine device) in place Bloated abdomen PMB (postmenopausal bleeding) Breast pain Hot flashes Hx of anorexia nervosa Hx of bipolar disorder Surgical History History of endometrial biopsy Hx of foot surgery Family History Mother Hypertension Social History Household Members: Significant Other Housing: House Alcohol intake: current Alcohol intake frequency: a few times a week Patient Tobacco Use Status: Never used Tobacco Tobacco use type: Cigarette e-Cigarette/Vaping Use: Never Used Second Hand Smoke Exposure: No service: No Current occupational status: employed 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 1. Little interest or pleasure in doing things: not at all 2. Feeling down, depressed, or hopeless: not at all 3. Trouble falling or staying asleep, or sleeping too much: not at all 4. Feeling tired or having little energy: not at all 5. Poor appetite or overeating: not at all 6. Feeling bad about yourself - or that you are a failure or have let yourself or your family down: not at all 7. Trouble concentrating on things, such as reading the newspaper or watching television: not at all 8. Moving or speaking so slowly that other people could have noticed. Or the opposite - being so fidgety or restless that you have been moving around a lot more than usual: not at all 9. Thoughts that you would be better off or of hurting yourself in some way: not at all Total score: 0 Depression Screening Interpretation: Negative Depression Screening Done: Yes 35451 - PHQ-9 Billing: Yes Source: Developed by Drs. Elan Reaves, Roxi Nichols, Kenji Schwartz and colleagues, with an educational pita from [employer]. Thrive Questionnaire Date Thrive assessed: 06/27/24 I am a: Patient What is your living situation today?: I have a steady place to live Within the past 12 months, did the food you bought not last and you didn't have the money to get more?: Never true Within the past 12 months, did you worry whether your food would run out before you got money to buy more?: Never true Do you have trouble paying for medicines?: No Do you have trouble getting transportation to medical appointments?: No Do you have trouble paying your heating and electricity bill?: No Do you have trouble taking care of your child, family member or friend?: No Do you have trouble with day-to-day activities such as bathing, preparing meals, shopping, managing finances, etc.?: No Are you currently unemployed and looking for a job?: No Are you interested in more education?: No Please select the resources that you would like help with: None Currently or been in a relationship where the following occur: No concerns reported THRIVE Score: 0 AUDIT C Alcohol Use Questionnaire (AUDIT-C) 1. How often do you have a drink containing alcohol?: 2-3 times a week 2. How many drinks containing alcohol do you have on a typical day when you are drinking?: 1 or 2 3. How often do you have six or more drinks on one occasion?: Never Total Score: 3 MALI-7 AMB Questionnaire MALI-7 Date MALI - 7 assessed: 06/29/24 Feeling nervous, anxious, or on edge: 0 = Not at all Not being able to stop or control worryin = Not at all Worrying too much about different things: 0 = Not at all Trouble relaxin = Not at all Being so restless that it is hard to sit still: 0 = Not at all Becoming easily annoyed or irritable: 0 = Not at all Feeling afraid as if something awful might happen: 0 = Not at all Total MALI-7 score (0-4 normal; 5-9 mild; 10-14 moderate; 15-21 severe): 0 Source: Developed by Drs. Elan Reaves, Roxi Nichols, Kenji Schwartz and colleagues, with an educational pita from [employer]. MALI-7 Assessment Billing MALI-7 Assessment Tool: MALI-7 Assessment 76100 Review of Systems Const Denies headache(s) Eyes Denies loss of vision ENT Denies vertigo, Denies dizziness, Denies headache(s) and Denies sore throat Card Denies chest pain, Denies leg edema and Denies lightheadedness Resp Denies cough, Denies hemoptysis and Denies wheezing GI Denies abdominal pain, Denies melena, Denies constipation, Denies diarrhea and Denies vomiting Denies urinary frequency, Denies dysuria and Denies urinary urgency Musc Denies arthralgias, Denies joint swelling, Denies numbness and Denies tingling Skin/Breast Reports other (Left great toenail ongoing fungus) Neuro Denies Abnormal speech present, Denies behavioral changes, Denies vertigo, Denies dizziness, Denies headache(s), Denies loss of vision, Denies memory loss, Denies numbness and Denies tingling Psych Denies anxiety, Denies behavioral changes, Denies depression, Denies memory loss and Denies panic attacks Dada/Lymph Denies easy bleeding and Denies easy bruising Aller/Immun Denies wheezing Physical exam (Primary Care) Vital Signs: Last Vital Signs Temp 97.1 F 07/05/25 10:33 Pulse 74 07/05/25 10:33 Resp 18 07/05/25 10:33 BP 112/60 07/05/25 10:33 Pulse Ox 96 07/05/25 10:33 Oxygen Delivery Method Room Air 07/05/25 10:33 BMI result Body Mass Index 18.9 Tobacco/Smoking Status: Tobacco use Status Tobacco use date assessed 07/05/25 07/05/25 10:41 Patient Tobacco Use Status Never used Tobacco 07/05/25 10:41 Tobacco use type Cigarette 07/05/25 10:41 e-Cigarette/Vaping Use Never Used 07/05/25 10:41 PHQ-9: PHQ-9 Score PHQ-9: Total score 0 07/05/25 11:14 Depression Screening Interpretation: Negative Thrive Assessment: Date of Thrive Assessment Date Thrive assessed 06/27/24 07/05/25 10:41 Currently or been in a relationship where the following occur: No concerns reported Const General: healthy appearing, no acute distress, alert and awake Nutritional Appearance: well nourished Orientation/consciousness: oriented to person, oriented to place and oriented to time HENMT Ears: TM's normal bilaterally General nose exam: Normal nasal mucous membranes and turbinates present Eyes Conjunctivae: conjunctivae normal Sclerae: sclerae normal Pupils: Equal, round and reactive pupils present Neck Neck: Yes no lymphadenopathy and Yes no JVD Thyroid: Thyroid normal Carotids: no bruits Resp Effort & Inspection: normal respiratory effort and not tachypneic Auscultation: no crackles, no rales, no rhonchi and no wheezes Cardio Rate: regular rate Rhythm: regular rhythm Heart sounds: no murmurs and normal S1 and S2 GI Palpation (GI): Soft to palpation, nontender, no hepatomegaly and no splenomegaly Auscultation: normal bowel sounds Skin General skin exam: no rashes or lesions noted and dry skin Neuro General: oriented to person, oriented to place and oriented to time Cranial nerves: Yes CN's II-XII intact bilaterally and Yes Equal, round and reactive pupils present Speech: No Abnormal speech present Gait exam (Neuro): Normal gait present Motor exam (neuro): no tremor noted Deep tendon reflexes (DTR's): Right triceps reflex intensity grade: 2+, Left triceps reflex intensity grade: 2+, Rt Biceps (C5, C6): 2+, Left biceps reflex intensity grade: 2+, Right brachioradialis reflex intensity grade: 2+, Left brachioradialis reflex intensity grade: 2+, Right patellar reflex intensity grade: 2+ and Left patellar reflex intensity grade: 2+ Extrem Right upper extremity: full ROM Left upper extremity: full ROM Right lower extremity: full ROM; no edema Left lower extremity: full ROM and foot (left great toenail darkened/thickened, new nail growing under old nail); no edema Psych Mental Status: mental status grossly normal Speech and movement: Normal speech and movement present Affect: normal affect Attitude: cooperative Thought process: Normal thought process present Coding Level of Care Code Est Pt Prev Care 40-64y(13064) Diagnoses Physical exam Z00.00 Hx of bipolar disorder Z86.59 PMB (postmenopausal bleeding) N95.0 Fungal toenail infection B35.1 Hx of anorexia nervosa Z86.59 Additional Codes MALI-7 Assessment Billing - MALI-7 Assessment Tool: MALI-7 Assessment 46113 ([id number]) PHQ-9 - 80570 - PHQ-9 Billing: Yes ([id number]) Time Spent (min) 37 Assessment & Plan Assessment & Plan (1) Physical exam: Code(s): Z00.00 - Encounter for general adult medical examination without abnormal findings Category: Medical Plan: Preventative guidelines reviewed with the patient she is up-to-date. New labs ordered for the patient to complete as soon as possible. Colonoscopy done at the age of 53 she is due to repeat this at age 63. She is up-to-date on her Pap smear that she does every 3 years and mammogram yearly (2) Hx of bipolar disorder: Comment: stable; see psych still Code(s): Z86.59 - Personal history of other mental and behavioral disorders Category: Medical Plan: Continue divalproex ER 250 mg daily To follow up with psych as scheduled (3) PMB (postmenopausal bleeding): Code(s): N95.0 - Postmenopausal bleeding Category: Medical Plan: The patient has a history of postmenopausal bleeding due to proliferative EMB. Mirena IUD was placed in 06/22/23 with positive effect. Follow up with OBGYN as scheduled (4) Fungal toenail infection: Code(s): B35.1 - Tinea unguium Category: Medical Plan: Left great toenail treated for fungus with terbinafine 250 mg for an extended period. To nail is currently falling off and a new nail is growing under it. Encouraged the patient to allow nails to fall off naturally. (5) Hx of anorexia nervosa: Code(s): Z86.59 - Personal history of other mental and behavioral disorders Category: Medical Plan: Stable-we will continue to monitor Orders: Orders Lipid Panel Today Z00.00 - Encounter for general adult medical examination without abnormal findings UA CC w/rflx Micro + Cult Today Z00.00 - Encounter for general adult medical examination without abnormal findings TSH reflex Free T4 Today Z00.00 - Encounter for general adult medical examination without abnormal findings Vitamin D 25-OH Total Today Z00.00 - Encounter for general adult medical examination without abnormal findings Complete Blood Count Auto Diff Today Z00.00 - Encounter for general adult medical examination without abnormal findings Comprehensive [place]. Panel Fast Today Z00.00 - Encounter for general adult medical examination without abnormal findings
== END 2025-07-05 11:15 | disposition home or self-care (01) ==
LOC: HO.HMCH 10:31
PROVIDERS: PCP Internal Medicine
DX: Z00.00 Encounter for general adult medical examination without abnormal findings (principal); Z86.59 Personal history of other mental and behavioral disorders; N95.0 Postmenopausal bleeding; B35.1 Tinea unguium

== ENCOUNTER → 2025-07-05 10:30 | Outpatient (BNVA) | payer BC, SELFPAY | PROVIDERS: PCP Internal Medicine | DX: Z00.00 Encounter for general adult medical examination without abnormal findings (principal); N95.0 Postmenopausal bleeding; B35.1 Tinea unguium; Z86.59 Personal history of other mental and behavioral disorders | CPT/HCPCS: 96127 ==

== ENCOUNTER 2025-08-03 07:19 | Outpatient (REF) | payer BC, SELFPAY ==
[2025-08-03 07:31] LABS: MANUAL DIFF FLAG NO
[2025-08-03 07:39] LABS: Hematocrit 40.8 % (37.0-47.0); Hemoglobin 13.5 g/dl (12.0-16.0); Imm Gran Abs Auto 0.01 X10*3/uL (0.00-0.03); Imm Gran Pct Auto 0.2 % (0.0-0.4); Lymphocytes Absolute Auto 3.3 X10*3/uL (1.2-4.9); Mean Corpuscular HGB Conc 33.1 g/dl (31.0-35.0); Mean Corpuscular Hemoglobin 32.1 pg (27.0-33.0); Mean Corpuscular Volume 96.9 fL (80.0-98.0); NRBC Abs Auto 0.000 X10*3/uL (0.0-0.012); NRBC Pct Auto 0.0 /100WBC (0.0-0.2); Platelet Count 212 X10*3/uL (160-400); Red Blood Count 4.21 X10*6/uL (4.20-5.50); White Blood Count 6.4 X10*3/uL (4.8-10.8)
[2025-08-03 08:20] LABS: Appearance Urine Clear; Glucose Urine UA Negative (Negative); PH 7.0 (5.0-9.0); Specific Gravity - Urine 1.010 (1.005-1.025)
[2025-08-03 08:22] LABS: Alanine Aminotransferase 26 U/L (0-31); Albumin Level 4.5 g/dL (3.5-5.0); Alkaline Phosphatase 48 U/L (39-117); Anion Gap 12 (12-20); Aspartate Amino Transferase 39 U/L (5-31); Blood Urea Nitrogen 19 mg/dL (9-16); Calcium 9.5 mg/dL (8.4-10.2); Carbon Dioxide 29 mmol/L (22-29); Chloride 103 mmol/L (96-108); Cholesterol 194 mg/dL (<200); Estimated Glomerular Filt Rate > 60; HDL Cholesterol 65 mg/dL (>40); Potassium 4.6 mmol/L (3.3-5.1); Sodium 139 mmol/L (135-145); Total Protein 7.8 g/dL (6.5-8.0); Triglycerides 55 mg/dL (<150)
== END 2025-08-03 07:20 | disposition home or self-care (01) ==
LOC: HO.LAB 07:19
DX: Z00.00 Encounter for general adult medical examination without abnormal findings (principal); Z13.6 Encounter for screening for cardiovascular disorders; Z13.21 Encounter for screening for nutritional disorder; Z13.29 Encounter for screening for other suspected endocrine disorder
CPT/HCPCS: 36415; 80053; 80061; 81003; 82306; 84443; 85025